=== PATIENT | female | born 1940 | race Caucasian/White ===

== ENCOUNTER 2019-02-13 02:05 | Emergency (ER) | payer MEDICARE, OTHER ==
[~2019-02-13] VITALS: Ht 162.6 cm; Wt 131.8 kg
[~2019-02-13 02:05] MED LIST: AMLODIPINE2.5 MG PO; ATIVAN1 MG PO; BLOOD GLUCOSE TEST S SC; CIPROFLOXACN500 MG PO; CLOTRIMAZOLE13 EX; DULCOLAX10 MG RE; FISH OIL1000 MG PO; FLEET ENEMA RE; FLUARIX QUADRIV1 INJ IM; FLUCONAZOLE150 MG PO; GABAPENTIN300 MG PO; GLIPIZIDE5 M2 PO; GLYBURIDE2.5 MG PO; GLYBURIDE5 MG PO; HUMALOG KW100 UNIT/M SC; HYDROCHLOROTH12.5 M1 PO; INSULIN SY0.3 MG/36 SC; INSULIN SY0.5 MG/35 SC; KETOCONAZOLE21 EX; LANCETS 30G30 G XX; LANTUS100 UNIT/M SC; LEVEMIR SC; LEVEMIR100 UNIT/M SC; LEVEMIR1000 UNITS SC; LEXAPRO10 MG PO; LISINOPRIL20 M1 PO; LISINOPRIL20 MG PO; MAPAP325 MG PO; METFORMIN1000 MG PO; METFORMIN500 M1 OR; METFORMIN500 MG PO; MILK OF MAG30 ML/UDC PO; MONITOR SC; MULTIVITAMI1 PO; NORVASC2.5 M1 PO; PRAVASTATIN10 MG OR; PRAVASTATIN10 MG PO; PRINIVIL5 MG OR; RELION ULTIMA B1 KIT XX; ROCEPHIN1 G1 IJ; ULTRAM50 M1 OR; VITAMIN B CO PO
[2019-02-13] MEDS ORDERED: JANUVIA50 MG PO (02:28)
[2019-02-13] MEDS ORDERED: FUROSEMIDE20 MG PO (02:28)
[2019-02-13] MEDS ORDERED: TRULICITY0.75 MG/0. SC (02:31)
[2019-02-13] MEDS ORDERED: FERROUS SULF325 M3 PO (02:35)
[2019-02-13] MEDS ORDERED: LEVEMIR100 UNIT/M SC (02:36)
[2019-02-13 02:58] LABS: HEMATOCRIT 33.6 % (37.0-47.0); HEMOGLOBIN 10.5 g/dl (12.0-16.0); IMMATURE GRANULOCYTES 0.9 % (0.0-5.0); MEAN CELL VOLUME 96.8 fL CALC (80.0-100.0); MEAN CORPUSCULAR HGB 30.3 pG CALC (26.0-32.0); MEAN CORPUSCULAR HGB CONC 31.3 g/L CALC (32.0-36.0); NEUT# 5.06 thou/uL (2.00-7.15); RED BLOOD COUNT 3.47 mill/uL (4.20-5.60); RED CELL DISTRI WIDTH 14.1 % (11.5-15.5)
[2019-02-13 03:11] LABS: ALKALINE PHOSPHATASE 86 u/l (38-126); BILIRUBIN, TOTAL 0.2 mg/dL (0.0-1.4); BUN 37 mg/dL (8-23); BUN/CREATININE RATIO 21 (12-20 (CALC)); CARBON DIOXIDE 26 mmol/l (22-30); CHLORIDE 107 mmol/l (95-108); CREATININE 1.7 mg/dL (0.5-1.0); GFR 29 ML/MIN (>=60 (CALC)); GFR FOR AFR.AMER. 35 ML/MIN (>=60 (CALC)); SGOT/AST 22 u/l (9-36); SODIUM 141 mmol/l (137-146); TOTAL PROTEIN 7.7 g/dL (6.3-8.2)
[2019-02-13 03:12] LABS: ALBUMIN 3.9 g/dL (3.2-5.0); ANION GAP 12 (6-22 (CALC)); POTASSIUM 3.9 mmol/l (3.5-5.1)
[2019-02-13 05:55] VITALS: BP 136/66
== END 2019-02-13 05:55 ==
LOC: ED 02:05
PROVIDERS: Family Medicine
DX: R07.89 Other chest pain (principal)

== ENCOUNTER 2020-02-12 02:49 | Inpatient (IN) | payer MEDICARE, OTHER ==
[~2020-02-12] VITALS: Ht 162.6 cm; Wt 119.0 kg
[~2020-02-12 02:49] MED LIST changes: +FERROUS SULF325 M3 PO; +FUROSEMIDE20 MG PO; +JANUVIA50 MG PO; +TRULICITY0.75 MG/0. SC
--- NOTE | 2020-02-12 03:10 | NUR ---
PATIENT ARRIVED TO ED ON O2@4L NC WITH PULSE OX READING 100%, O2 DISCONTINIED WITH PULSE OX READING 96% ON ROOM AIR. NO S/S OF DISTRESS NOTED, RESPIRATIONS EVEN AND UNLABORED.
[2020-02-12 03:30] LABS: HEMATOCRIT 35.6 % (37.0-47.0); HEMOGLOBIN 10.7 g/dl (12.0-16.0); IMMATURE GRANULOCYTES 1.4 % (0.0-5.0); MEAN CELL VOLUME 98.3 fL CALC (80.0-100.0); MEAN CORPUSCULAR HGB 29.6 pG CALC (26.0-32.0); MEAN CORPUSCULAR HGB CONC 30.1 g/dL CAL (32.0-36.0); NEUT# 3.28 thou/uL (2.00-7.15); RED BLOOD COUNT 3.62 mill/uL (4.20-5.60); RED CELL DISTRI WIDTH 13.8 % (11.5-15.5)
[2020-02-12 03:51] LABS: D-DIMER 1.25 mg/L (0.19-0.60)
[2020-02-12 03:52] LABS: URINE BILIRUBIN - DIPSTICK NEGATIVE (NEGATIVE); URINE BLOOD DIPSTICK LARGE (NEGATIVE); URINE COLOR YELLOW; URINE GLUCOSE - DIPSTICK NEGATIVE (NEGATIVE); URINE KETONE NEGATIVE (NEGATIVE); URINE PROTEIN - DIPSTICK 100 mg/dL (NEG-TRACE); URINE UROBILINOGEN - DIPSTICK 0.2 E.U./dL (0.2)
[2020-02-12 03:56] LABS: URINE LEUK ESTERASE MODERATE (NEGATIVE); URINE NITRITE - DIPSTICK POSITIVE (Negative)
--- NOTE | 2020-02-12 03:57 | NUR ---
PATIENT RESTING QUIETLY AT THIS TIME, NO C/O PAIN OR DISCOMFORT, NO S/S OF DISTRESS NOTED, RESPIRATIONS EVEN AND UNLABORED, AWAITING DIAGNOSTIC RESULTS.
[2020-02-12 04:04] LABS: URINE SQUAMOUS EPITHELIAL CELL FEW EPI/hpf (0-FEW); URINE WBC 50-100 WBC/hpf (0-5)
[2020-02-12 04:05] LABS: URINE BACTERIA MANY hpf
[2020-02-12 04:07] LABS: ALBUMIN 3.7 g/dL (3.2-5.0); CREATININE 1.6 mg/dL (0.5-1.0); TOTAL PROTEIN 7.2 g/dL (6.3-8.2)
[2020-02-12 04:08] LABS: PROTHROMBIN TIME 10.1 SECONDS (9.0-12.5)
[2020-02-12 04:18] LABS: BILIRUBIN, TOTAL 0.5 mg/dL (0.0-1.4); POTASSIUM 4.8 mmol/l (3.5-5.1)
--- NOTE | 2020-02-12 04:55 | NUR ---
PATIENT RESTING QUIETLY, RESPIRATIONS EVEN AND UNLABORED ON ROOM AIR, NO C/O PAIN OR DISCOMFORT, NO S/S OF DITRESS NOTED, AWAITING RADIOLGY EXAM IN AM.
--- NOTE | 2020-02-12 06:04 | NUR ---
PATIENT RESTING QUIETLY WITH EYES CLOSED, RESPIRATIONS EVEN AND UNLABORED, NO C/O PAIN OR DISCOMFORT, NO S/S OF DISTRESS, AWAITING DISCAHRGE TRANSPORTATION.
--- NOTE | 2020-02-12 06:05 | NUR ---
PATIENT UPDATE GIVEN TO DENYS AT [facility]
--- NOTE | 2020-02-12 06:06 | NUR ---
PATIENT AWAKE AND ALERT, NO C/O PAIN OR DISCOMFORT, AWAITING RADIOLOGY EXAM.
--- NOTE | 2020-02-12 07:00 | NUR ---
RECIEVED CARE OF PATIENT. PT RESTING ON STRETCHER, AWAKE, ALERT AND ORIENTED TO SELF. NO COMPLAINTS AT THIS TIME. SKIN PINK WARM AND DRY.
--- NOTE | 2020-02-12 08:00 | NUR ---
TO CT WITH PATIENT. PT UNCOOPERATIVE FOR EXAM. MEDICATED WITH ATIVAN AND O2 2L NC APPLIED. O2 SAT MONITOR IN PLACE. PT POSITIONED FOR TEST.
--- NOTE | 2020-02-12 08:30 | NUR ---
PT RETURNED TO CT. MONITORS APPLIED. PT PULLED OUT 22G IV IN LEFT HAND AND 20 G IV IN LEFT AC KINKED AND THEN DC'D. IV STARTED IN LEFT FOREARM. COBAN APPLIED TO COVER IV FOR SAFETY
--- NOTE | 2020-02-12 09:25 | NUR ---
PT RESTING ON STRETCHER IV ANTIBIOTICS INFUSING
--- NOTE | 2020-02-12 10:21 | NUR ---
PT RESTING ON STRETCHER AWAITING ADMISSION
--- NOTE | 2020-02-12 10:29 | NUR ---
MED SURG UNABLE TO TAKE REPORT AT THIS TIME
--- NOTE | 2020-02-12 11:00 | NUR ---
REPORT CALLED TO STEVEN MÉNDEZBANK ANALYST
--- NOTE | 2020-02-12 11:01 | NUR ---
RRECIEVED REPORT FROM ROSSANA RN
--- NOTE | 2020-02-12 11:12 | NUR ---
PT ARRIVED TO MED SURG ROOM 290 VIA STRETCHER IN STABLE CONDITION ACCOMPAINED BY ROSSANA. PT IS VERY DROWSY AT THIS TIME. ATIVAN 2 MG ADMINISTERED TO PT IN ER. RESPIRATIONS ARE SHALLOW, 2L NC APPLIED. LUNG SOUNDS ARE DIMINISHED. HEART RHYTHM IS NORMAL WITH TELE IN PLACE. BOWEL SOUNDS ARE HYPOACTIVE. RADIAL AND PEDAL PULSES ARE STRONG WITH NORMAL CAPILLARY REFILL. #20G IN LFA RUNNING WITH [employer], SITE APPEARS HEALTHY AND PATENT.NO SIGNS OF ANY PAIN OR DISCOMFORTS AT THIS TIME. ALL [employer] PRCAUTIONS IN PLACE WITH CALL LIGHT IN REACH. NO BELONGINGS PRESENT WITH PT. [employer] WAS INFORMED BY ROSSANA THAT IF "PT HAD BELONGINGS, THEY WOULD BE BROUGHT BACK UP ". WILL CONTINUE TO MONITOR
--- NOTE | 2020-02-12 11:15 | NUR ---
PT TRANSPORTED TO MED SURG VIA STRETCHER, TELEMETRY IN PLACE
[2020-02-12 11:55] VITALS: BP 180/82
--- NOTE | 2020-02-12 11:58 | NUR ---
FLU SWAB OBTAINED AT THIS TIME. PT STILL APPEARS DROWSY. RESPIRATIONS SHALLOW, 2L NC APPLIED. ALL SAFETY PRECAUTIONS ARE IN PLACE WITH CALL LIGHT IN REACH. WILL CONTINUE TO MONITOR
--- NOTE | 2020-02-12 13:03 | NUR ---
SPOKE WITH SON OF PT STATUS. PT APPROVED TO GIVE SON INFORMATION. SON IS GOO HISTORIAN.
[2020-02-12 13:18] VITALS: BP 145/65
--- NOTE | 2020-02-12 13:18 | NUR ---
REASSESSMENT OF BP RESULTING IN 145/65 HR 69. PT STILL APPEARS DROWSY. RESPIRTAIONS ARE SHALLOW, 2L NC APPLIED. ASSESSMENT REAMINS THE SAME. PT UNABLE TO ANSWER ADMISSION QUESTIONS DUE TO BEING MEDICATED. SON WAS ABLE TO ANSWER SOME QUESTIONS. [facility] TO BE CONTACTED FOR FURTHER INFORMATION. ALL SAFTEY PRECAUTIONS IN PLACE WITH CALL LIGHT IN REACH. WILL CONTINUE TO MONITOR
--- NOTE | 2020-02-12 14:07 | NUR ---
[facility] CONTACTED TO ASSIST WITH COMPLETION OF ADMISSION QUESTIONS.
[2020-02-12 15:33] VITALS: BP 145/65
--- NOTE | 2020-02-12 16:40 | NUR ---
PT RESTING IN SEMI FOWERS POSITION WITH EYES CLOSED. REPSIRATIONS ARE EVEN AND UNLABORED WITH NO SIGNS OF DISTRESS NOTED. PT MEDICATED IN ER WITH ATIVAN. PT STILL PRESENTS DROWSY. IVF RUNNING PER ORDER. NO SIGNS OF ANY PAIN OR DISCOMFORTS.ASSESSMENT REMAINS THE SAME AT THIS TIME. ALL SFAETY PRECAUTIONS ARE IN PLACE WITH CALL LIGHT IN REACH. WILL CONTINUE TO MONITOR
--- NOTE | 2020-02-12 19:02 | NUR ---
REPORT FROM IRISH JARVIS. PT NOTED RESTING IN BED. RESPIRATIONS EVEN AND UNLABORED. O2 @ 2L/M VIA NC. PT REMAINS VERY DROWSY, BUT WAKES TO VERBAL STIMULI AND ANSWERS QUESTIONS APPROPRIATELY. PT DENIES ANY PAIN OR SOB. IV FLUIDS INFUSING ORDERED. IV SITE APPEARS HEALTHY. DISCUSSED POC. PT VERBALIZED UNDERSTANDING. CALL LIGHT WITHIN REACH. WILL CONTINUE TO MONITOR.
--- NOTE | 2020-02-12 19:17 | NUR ---
[facility] CONTACTED REGARDING PT CODE STATUS. COPY OF DNR RECEIVED VIA FAX AT THIS TIME, INTERNAL CONTROLS ANALYST PHYSICIAN NOTIFIED.
[2020-02-12 20:05] VITALS: BP 157/75
--- NOTE | 2020-02-12 21:50 | NUR ---
PT MEDICATED ORDERED. STEP FINISHER ABLE TO AROUSE PT ENOUGH TO EAT DIABETIC SNACK AT THIS TIME. PT DINNER LEFT IN ROOM NOTED TO BE UNTOUCHED. PT DENIES ANY CURRENT WANTS OR NEEDS. CALL LIGHT WITHIN REACH. WILL CONTINUE TO MONITOR.
[2020-02-13] VITALS: BP 120/50
--- NOTE | 2020-02-13 00:07 | NUR ---
PT INCONTINENT OF BOWEL AND BLADDER AT THIS TIME. PERICARE PROVIDED AND CLEAN BRIEF APPLIED. PT REPOSITIONED FOR COMFORT. HEALS OFFLOADED. PT DENIES ANY PAIN OR SOB AT THIS TIME. 02 SAT 96% ON 2L/M VIA NC. [employer] LICENSEE REMAINS IN PLACE. IVF INFUSING WITHOUT DIFFICULTY. PT STAYED AWAKE WHILE STAFF IN ROOM PROVIDING CARE. CALL LIGHT WITHIN REACH. WILL CONTINUE TO MONITOR.
[2020-02-13 04:00] VITALS: BP 129/57
--- NOTE | 2020-02-13 04:16 | NUR ---
PT REPOSITIONED AND CHANGED OF INCONTINENCE A THIS TIME. PERICARE PROVIDED. PT TOLERATED WELL. PT DENIES ANY PAIN OR SOB. PT AWAKE AND MORE ALERT NOW. CALL LIGHT WITHIN REACH. WILL CONTINUE TO MONITOR.
[2020-02-13 05:11] LABS: HEMATOCRIT 34.7 % (37.0-47.0); HEMOGLOBIN 10.2 g/dl (12.0-16.0); IMMATURE GRANULOCYTES 1.5 % (0.0-5.0); MEAN CELL VOLUME 99.1 fL CALC (80.0-100.0); MEAN CORPUSCULAR HGB 29.1 pG CALC (26.0-32.0); MEAN CORPUSCULAR HGB CONC 29.4 g/dL CAL (32.0-36.0); NEUT# 2.38 thou/uL (2.00-7.15); RED BLOOD COUNT 3.5 mill/uL (4.20-5.60); RED CELL DISTRI WIDTH 13.6 % (11.5-15.5)
[2020-02-13 05:39] LABS: ALBUMIN 3.1 g/dL (3.2-5.0); C-REACTIVE PROTEIN 1.2 mg/dL (0-0.9); CREATININE 1.5 mg/dL (0.5-1.0); POTASSIUM 4.4 mmol/l (3.5-5.1); TOTAL PROTEIN 6.1 g/dL (6.3-8.2)
[2020-02-13 05:40] LABS: BILIRUBIN, TOTAL 0.1 mg/dL (0.0-1.4); MAGNESIUM 2.1 mg/dL (1.6-2.3)
--- NOTE | 2020-02-13 07:10 | NUR ---
REPORT RECEIVED BY MATHEUS GUPTA
--- NOTE | 2020-02-13 08:10 | NUR ---
PT RESTING IN SEMI FOWLERS POSITIONK,A&O X2 WITH FORGETFULNESS NOTED.HX DEMENTIA, WILL ATTEMPT TO RE-ORIENT NEEDED;PT DENIES ANY CURRENT PAIN OR DISCOMFORTS,PAIN SCALE AND REPORTING EDUCATED;RESPIRATIONS EVEN AND UNLABORED ON RA WITH STABLE OXYGEN SATS, O2 @ 2L AT BEDSIDE NEEDED;NON-PRODUCTIVE COUGH AT TIMES;ABDOMEN SOFT ON PALPATION AND ACTIVE IN ALL 4 QUADRANTS;STRONG PEDAL PULSES;SKIN INTACT;TELE MONITORING IN PLACE;#20G TO LFA INFUSING NS @ 50ML/HR,SITE APPEARS HEALTHY;ACCUCHECK 179, PT COVERED WITH SLIDING SCALE NOVOLOG PER ORDER;PT REMAINS IN AIR/CONTACT PRECAUTIONS DUE TO COVID19 DX;PT DENIES ANY ADDITIONAL NEEDS AT THIS TIME;ENCOURAGED TO CALL FOR ASSISTANCE IF NEEDED;FALL PRECAUTIONS IN PLACE WITH BED IN THE LOWEST POSIITON AND CALL LIGHT IN REACH;WILL CONTINUE TO MONITOR
[2020-02-13 08:12] VITALS: BP 149/57
--- NOTE | 2020-02-13 08:48 | NUR ---
AT BEDSIDE DISCUSSING POC WITH PT.
[2020-02-13 11:25] VITALS: BP 132/55
--- NOTE | 2020-02-13 11:35 | NUR ---
PT RESTING IN SEMI FOWLERS POSITION;RESPIRATIONS EVEN AND UNLABORED ON O2 @ 2L VIA NC;PT DENIES ANY CURRENT PAIN OR DISCOMFORTS;TELE MONITORING IN PLACE;IV SITE PATENT;ACCUCHECK 226, PT COVERED WITH SLIDING SCALE NOVOLOG PER ORDER;PT DENIES ANY ADDITIONAL NEEDS AT THIS TIME;ENCOURAGED TO CALL FOR ASSISTANCE IF NEEDED;CALL LIGHT IN REACH;WILL CONTINUE TO MONITOR
[2020-02-13 15:25] VITALS: BP 146/58
--- NOTE | 2020-02-13 16:30 | NUR ---
PT RESTING IN SEMI FOWLERS POSITION;RESPIRATIONS EVEN AND UNLABORED ON RA;PT DENIES ANY CURRENT PAIN OR NEEDS;TELE MONITORING IN PLACE;IV SITE PATENT AND ABX HUNG AT THIS TIME;ASSESSMENT REMAINS UNCHANGED;PT ENCOURAGED TO CALL FOR ASSISTANNCE IF NEEDED;CALL LIGHT IN REACH;WILL CONTINUE TO MONITOR
[2020-02-13 19:51] VITALS: BP 162/57
--- NOTE | 2020-02-13 19:51 | NUR ---
PT RESTING IN BED ALERT TO SELF. RESPIRATIONS EVEN AND UNLABORED ON RA. LUNGS SOUND DIMINISHED. PEDAL PULSES ARE STRONG. PT DENIES ANY PAIN OR DISCOMFORT AT THIS TIME. SAFETY PRECAUTIONS IN PLACE. WILL CONTINUE TO MONITOR.
[2020-02-14] VITALS (10 sets, daily range): BP systolic 150–201; BP diastolic 63–162
--- NOTE | 2020-02-14 00:30 | NUR ---
PT RESTING IN BED, RESPIRATIONS EVEN AND UNLABORED ON RA. PT REMOVED IV, IV CATHETER INTACT. NEW IV TO BE STARTED.
--- NOTE | 2020-02-14 03:06 | NUR ---
PT RESTING IN BED, RESPIRATIONS EVEN AND UNLABORE ON RA. NO S/S OF DISTRESS AT THIS TIME. SAFETY PRECAUTIONS IN PLACE. WILL CONTINUE TO MONITOR.
--- NOTE | 2020-02-14 03:57 | NUR ---
RAKEL RN AT BEDSIDE TO START IV
--- NOTE | 2020-02-14 07:40 | NUR ---
PT RESTING IN SEMI FOWLERS POSITION, A&O X1;WILL ATTEMPT TO RE-ORIENT NEEDED;VS OBTAINED AND ASSESSMENT COMPLETED, CURRENT BP 189/104 HR 85 (BEATRICE ANRP NOTIFIED);PT DENIES ANY CURRENT PAIN OR DISCOMFORTS,PAIN SCALE AND REPORTING EDUCATED;RESPIRATIONS SHALLOW ON O2 @ 2L VIA NC,NON-PRODUCTIVE COUGH NOTED AT TIMES;ABDOMEN SOFT ON PALPATION AND ACTIVE IN ALL 4 QUADRANTS;STRONG PEDAL PULSES;REDDENING NOTED TO COCCYX AND ABD FOLDS,SKIN OTHERWISE INTACT;#22G TO RH FLUSHED AND PATENT,SITE APPEARS HEALTHY;TELE MONITORING IN PLACE;ACCUCHECK 113, NO COVERAGE NEEDED;PT REMAINS IN AIR/CONTACT PRECAUTIONS;ALL SAFETY PRECAUTIONS REMAIN IN PLACE WITH BED IN THE LOWEST POSITION AND CALL LIGHT IN REACH;WILL CONTINUE T0 MONITOR
--- NOTE | 2020-02-14 08:15 | NUR ---
AT BEDSIDE DISCUSSING POC.
--- NOTE | 2020-02-14 09:00 | NUR ---
BP RE-CHECK 196/74 HR 92, PT TO BE MEDICATED WITH PRN APRESOLINE 10MG IVP BY HONEY WEBB;WILL CONTINUE TO MONITOR
--- NOTE | 2020-02-14 09:10 | NUR ---
REPORT RECEIVED FROM HONEY PICKARD.
--- NOTE | 2020-02-14 10:15 | NUR ---
PT CURRENT TEMP 100.5, ATTEMPT TO MEDICATE PT WITH PRN TYLENOL BUT PT REFUSING TO TAKE PO MEDICATION AT THIS TIME;BEATRICE ANRP NOTIFIED;WILL CONTINUE TO MONITOR
--- NOTE | 2020-02-14 12:00 | NUR ---
PT RESTING IN SEMI FOWLERS POSITION;RESPIRATIONS EVEN AND UNLABORED ON O2 @ 2L VIA NC;PT NOT VERY TALKATIVE, NO S/S OF DISTRESS NOTED;TELE MONITORING IN PLACE;IV SITE PATENT;CURRENT BP 165/70 TEMP 100.0;ACCUCHECK 169, PT COVERED WITH SLIDING SCALE NOVOLOG PER ORDER;ALL SAFETY PRECAUTIONS REINFORCED AND LUNCH TRAY PROVIDED;ENCOURAGED TO CALL FOR ASSISTANCE IF NEEDED;CALL LIGHT IN REACH;WILL CONTINUE TO MONTIOR
--- NOTE | 2020-02-14 15:40 | NUR ---
PT RESTING IN SEMI FOWLERS POSITION;RESPIRATIONS EVEN AND UNLABORED ON O2 @ 2L VIA NC;PT DENIES ANY CURRENT PAIN OR DISCOMFORTS;TELE MONITORING IN PLACE;IV SITE PATENT;ASSESSMENT REMAINS UNCHANGED AT THIS TIME AND IS ENCOURAGED TO CALL FOR ASSISTANCE IF NEEDED;FALL PRECAUTIONS IN PLACE WITH CALL LIGHT IN REACH;WILL CONTINUE TO MONITOR
--- NOTE | 2020-02-14 20:02 | NUR ---
NURSING REPORT RECEIVED FROM [facility]. PT ASSESSMENT AND VITALS COMPLETE. PT RESTING IN SEMI FOWLERS POSITION;RESPIRATIONS EVEN AND UNLABORED ON O2 @ 2L VIA NC;PT IS NON VERBAL, PTS CURRENT BP 192/84 WAS COVERED WITH 10 MG OF LABETALOL. WILL REASSES BP. NO S/S OF DISTRESS NOTED;TELE MONITORING IN PLACE;IV SITE PATENT;ACCUCHECK 93, NO COVERAGE NEEDED WITH SLIDING SCALE NOVOLOG PER ORDER;ALL SAFETY PRECAUTIONS REINFORCED; ENCOURAGED TO CALL FOR ASSISTANCE IF NEEDED;CALL LIGHT IN REACH;WILL CONTINUE TO MONTIOR.
--- NOTE | 2020-02-14 23:30 | NUR ---
PT BP REMAINS HIGH. 10 MG IV PRN APRESOLINE GIVEN . WILL REASSESS. PTS BED CHANGED. PT RESTING IN SEMI FOWLERS POSITION;RESPIRATIONS EVEN AND UNLABORED ON O2 @ 2L VIA NC;PT DENIES ANY CURRENT PAIN OR DISCOMFORTS;TELE MONITORING IN PLACE;IV SITE PATENT; CALL FOR ASSISTANCE IF NEEDED;FALL PRECAUTIONS IN PLACE WITH CALL LIGHT IN REACH;WILL CONTINUE TO MONITOR
--- NOTE | 2020-02-14 23:45 | NUR ---
PT B/P REASSESSED @206/114, APRESOLINE IV ADMINISTERED AT THIS TIME. PT PROVIDED COMPLETE BEDBATH AT THIS TIME. NO S/O DISTRESS NOTED. PT REPOSITIONED IN BED FOR PRESSURE CARE, PILLOW TO RIGHT SIDE.
[2020-02-15] VITALS (12 sets, daily range): BP systolic 132–206; BP diastolic 52–114
--- NOTE | 2020-02-15 04:56 | NUR ---
PT CONTINUES BEFORE. NO EVIDENCE OF DISTRESS. PT REPOSITIONED TO THE MIDDLE OF THE BED SEMI FOWLERS. CALL LIGHT WITHIN REACH . WILL CONTINUE TO MONITOR.
--- NOTE | 2020-02-15 07:10 | NUR ---
REPORT RECEIVED FROM HONEY SANTANA.
--- NOTE | 2020-02-15 07:50 | NUR ---
PT RESTING IN SEMI FOWLERS POSITION,NON-VERBAL THIS MORNING;VS OBTAINED AND ASSESSMENT COMPLETED;PT DENIES ANY CURRENT PAIN OR DISCOMFORTS,PAIN SCALE AND REPORTING EDUCATED;RESPIRATIONS SHALLOW ON O2 @ 2L VIA NC;ABDOMEN SOFT ON PALPATION AND ACTIVE IN ALL 4 QUADRANTS;STRONG PEDAL PULSES;REDDENING NOTED TO ABD FOLD AND COCCYX,SKIN OTHERWISE INTACT;TELE MONITORING IN PLACE;#22G TO RIGHT HAND FLUSHED AND PATENT,SITE APPEARS HEALTHY;PT CURRENT BP 175/70 HR 78, PT REFUSES TO TAKE ANY ORAL MEDICATION THIS MORNING THEREFORE PRN APRESOLINE 10MG IVP TO BE ADMINISTERED BY HONEY WEBB;PT REMAINS IN AIR/CONTACT PRECAUTIONS DUE TO COVID 19 DX;ALL SAFETY PRECAUTIONS REINFORCED WITH BED IN THE LOWEST POSITION AND CALL LIGHT IN REACH;WILL CONTINUE TO MONITOR
--- NOTE | 2020-02-15 08:05 | NUR ---
10 MG IV APRESOLINE GIVEN FOR BP 175/70 AND HR 78. ROCHELLE NAVARRETEN TO REASSESS
--- NOTE | 2020-02-15 09:05 | NUR ---
BP RE-CHECK 172/75 HR 95 AFTER PRN APRESOLINE ADMINISTRATION;BEATRICE ANXENA NOTIFIED,AWAITING NEW ORDERS;WILL CONTINUE TO MONITOR
--- NOTE | 2020-02-15 09:29 | NUR ---
AT BEDSIDE DISCUSSING POC.
--- NOTE | 2020-02-15 10:00 | NUR ---
PT TO BE MEDICATED WITH PRN LABETOLOL 10MG IVP FOR BP 172/73 HR 95 BY HONEY WEBB.
--- NOTE | 2020-02-15 10:04 | NUR ---
10 MG OF IV LABETOLOL GIVEN FOR BP 172/73 AND HR 95, PER NATALI PETTIT OKAY TO GIVEN DUE TO BP NOT MEETING EMAR BP PERAMEBELL. ROCHELLE NAVARRETEN TO REASSESS
--- NOTE | 2020-02-15 11:05 | NUR ---
BP RE-CHECK 132/52 HR 71
--- NOTE | 2020-02-15 11:45 | NUR ---
PT RESTING IN SEMI FOWLERS POSITION,DROWSY BUT SAYS "WHAT" WHEN SPOKEN TO;RESPIRATIONS REMAIN SHALLOW ON O2 @ 2L VIA NC;PT DENIES ANY CURRENT PAIN OR DISCOMFORTS;TELE MONITORING IN PLACE;IV SITE PATENT;ACCUCHECK 167, PT COVERED WITH SLIDING SCALE NOVOLOG PER ORDER;ASSESSMENT REMAINS UNCHANGED AT THIS TIME AND IS ENCOURAGED TO CALL FOR ASSISTANCE IF NEEDED;FALL PRECAUTIONS IN PLACE WITH CALL LIGHT IN REACH;WILL CONTINUE TO MONITOR
--- NOTE | 2020-02-15 15:35 | NUR ---
PT SLEEPING IN SEMI FOWLERS POSITION;RESPIRATIONS EVEN AND UNLABORED,SHALLOW ON O2 @ 2L VIA NC;NO S/S OF DISTRESS NOTED;TELE MONITORING IN PLACE;#22G RIGHT HAND PATENT;BP 175/69 HR 74, PT TO BE MEDICATED WITH PRN LABETOLOL 10MG IVP BY HONEY WEBB;ALL SAFETY PRECAUTIONS REMAIN IN PLACE WITH BED IN THE LOWEST POSITION AND CALL LIGHT IN REACH;WILL CONTINUE TO MONITOR
--- NOTE | 2020-02-15 20:23 | NUR ---
ED CALLED TO REPORT PT HAD 7BEAT RUN OF V-TACH. NO S/O DISTRESS AT THIS TIME. V/S ASSESSED.
--- NOTE | 2020-02-15 22:20 | NUR ---
V/S ASSESSED 187/73 BP, HR 87, I CALLED ED FOR TELEMETRY READING CONFIRMATION "[id number]" WILL MEDICATE PT FOR BP
--- NOTE | 2020-02-15 22:29 | NUR ---
REPORT RECIEVED FROM EDMOND ALVAREZ. PT ASSESSMENT AND VITALS COMPLETED. RESTING IN SEMI FOWLERS POSITION,NON-VERBAL THIS MORNING; RESPIRATIONS SHALLOW ON O2 @ 2L VIA NC;ABDOMEN SOFT ON PALPATION AND ACTIVE IN ALL 4 QUADRANTS;STRONG PEDAL PULSES;REDDENING NOTED TO ABD FOLD AND COCCYX,SKIN OTHERWISE INTACT;TELE MONITORING IN PLACE;#22G TO RIGHT HAND FLUSHED AND PATENT,SITE APPEARS HEALTHY;PT CURRENT BP REMAINS HIGH, WILL TREAT WITH PRN MEDICATION. ALL SAFETY PRECAUTIONS REINFORCED WITH BED IN THE LOWEST POSITION AND CALL LIGHT IN REACH; WILL CONTINUE TO MONITOR
--- NOTE | 2020-02-15 22:30 | NUR ---
MEDICATED W/LEBATALOL FOR ELEVATED BP OF 187/73. HR ON TELEMETRY SR 84. 93% ON 2LNC. PT FACE APPEARS FLUSHED PRIOR TO ADMINISTERING MEDICATION. WILL CONTINUE TO MONITOR FOR RESPONSE.
--- NOTE | 2020-02-15 23:24 | NUR ---
PT MEDICATED W/TYLENOL FOR TEMP 100.9 BLANKETS REMOVED AT THIS TIME. ROOM IS COOL WE CAN GET. PT WAS ABLE TO SWALLOW PILLS CRUSED AND ADDED TO APPLESAUCE WITH MUCH ENCOURAGEMENT AND GUIDANCE. PT'S EYES REMAINED CLOSED, BUT SHE REPSONDED IN EATING 3/4 APPLESAUCE. PT WOULD NOT RESPOND TO DRINK. WILL ATTEMPT THICKENED WATER ON FOLLOW-UP. PROVIDED ORAL CARE AFTER FEED. PT TOLERATED WELL.
--- NOTE | 2020-02-15 23:34 | NUR ---
WATER THICKENED AND PT WAS ABLE TO INTAKE WITH A SPOON VERY WELL.
--- NOTE | 2020-02-16 00:11 | NUR ---
RE-ASSESSED TEMPERATURE 98.1 F
--- NOTE | 2020-02-16 02:10 | NUR ---
PT SLEEPING SOUNDLY, NO S/O DISTRESS NOTED. FAN ON PT FOR COMFORT, PREVIOUS RECHECK OF TEMP WAS AFEBRILE. NO S/O DISTRESS NOTED, PT APPEARS RESTFUL.
[2020-02-16 04:36] LABS: HEMOGLOBIN 10.9 g/dl (12.0-16.0); IMMATURE GRANULOCYTES 1.7 % (0.0-5.0); MEAN CELL VOLUME 98.1 fL CALC (80.0-100.0); MEAN CORPUSCULAR HGB 28.9 pG CALC (26.0-32.0); MEAN CORPUSCULAR HGB CONC 29.5 g/dL CAL (32.0-36.0); NEUT# 3.62 thou/uL (2.00-7.15); RED BLOOD COUNT 3.77 mill/uL (4.20-5.60); RED CELL DISTRI WIDTH 14.4 % (11.5-15.5)
[2020-02-16 04:50] VITALS: BP 132/57
--- NOTE | 2020-02-16 04:55 | NUR ---
pt cleaned of incontinent urine, provided sabrina-care and repositioned, pillows to r.side and feet elevated to float. hob @45 degrees and pt assisted drinking thickened water w/spoon. pt tolerated this well and intake 240cc of thicked water po at this time.
[2020-02-16 04:58] LABS: ALBUMIN 3.2 g/dL (3.2-5.0); C-REACTIVE PROTEIN 6.9 mg/dL (0-0.9); CREATININE 1.7 mg/dL (0.5-1.0); POTASSIUM 3.7 mmol/l (3.5-5.1); TOTAL PROTEIN 6.2 g/dL (6.3-8.2)
[2020-02-16 04:59] LABS: BILIRUBIN, TOTAL 0.3 mg/dL (0.0-1.4)
[2020-02-16 09:07] VITALS: BP 178/86
--- NOTE | 2020-02-16 09:59 | NUR ---
RECVIEVED REPORT FROM HONEY SANTANA. PT RESTING IN SEMI FOWLERS POSITION WHEN ENTERING ROOM. INTRODUCED SELF TO PT AND DISCUSSED POC. PT APPEARS TO BE AWAKE BUT NON VERBAL. ASSESSMENT AND VITALS COMPLETED AT THIS TIME. RESPIRATIONS ARE SHALLOW. LUNG SOUNDS ARE DIMINISHED. ORDERS FROM DERECK BARRON TO REMOVED O2 TO SEE HOW PT TOLERATES. PT STAT DROPPED TO 89% ON ROOM AIR. 2L NC REAPPLIED, PT SATING 97%. HEART RHYTHM IS NORMAL WITH TELE IN PLACE. BOWEL SOUNDS ARE HYPOACTIVE. RADIAL AND PEDAL PULSES ARE STRONG WITH NORMAL CAPILLARY REFILL. #20 IN RIGHT HAND FLUSHED, SITE APPEARS HEALTHY AND PATENT.MORNING MEDS GIVEN WITH APPLE SAUCE. PT TOLERATED WELL. BUTTOCK IS REDDENED WITH NO BREAKDOWN, Q2 TURING ENFORCED. NO SIGNS OF ANY PAIN OR DISCOMFORTS AT THIS TIME. ALL SAFETY AND ISOLATION PRECAUTIONS ARE IN PLACE. WILL CONTINUE TO MONITOR
[2020-02-16 11:00] VITALS: BP 153/64
--- NOTE | 2020-02-16 12:28 | NUR ---
NEW #20G STARTED IN RAC BY HONEY WHITE. SITE APPEARS HEALTHY AND PATENT. PT REMAINS NON VERBAL. RESPIRATIONS ARE EVEN AND UNLABROED WITH NO SIGNS OF DISTRESS NOTED. NO SIGNS OF ANY PAIN OR NEEDS. ALL SAFETY PRECAUTIONS ARE IN REACH. WILL CONTINUE TO MONITOR
--- NOTE | 2020-02-16 16:00 | NUR ---
PT RESTING IN SEMI FOWLERS POSITION WATCHING TV. RESPIRATIONS ARE EVEN AND UNLABORED WITH NO SIGNS OF DISTRESS. PT WAS RESPONDING TO YES OR NO QUESTIONS. PT DENEIS ANY PAIN OR DISCOMFORTS.ALL SAFTEY PRECAUTIONS ARE IN PLACE WITH CALL LIGHT IN REACH. WILL CONTINUE TO MONITOR
[2020-02-16 16:40] VITALS: BP 141/66
--- NOTE | 2020-02-16 18:55 | NUR ---
REPORT RECEIVED FROM MATHEUS HARRIS. PT RESTING IN BED FREE FROM DISTRESS AT THIS TIME. SAFETY PRECAUTIONS IN PLACE WILL CONTINUE TO MONITOR.
[2020-02-16 19:00] VITALS: BP 131/54
--- NOTE | 2020-02-16 19:51 | NUR ---
REASSESSMENT OF BP RESULTING IN 153/64, HR 77. RESPIRATIONS ARE EVEN AND UNLABORED WITH NO SIGNS OF DISTRESS. ALL SAFETY PRECAUTIONS IN REACH WITH CALL LIGHT IN REACH. WILL CONTINUE TO MONITOR
--- NOTE | 2020-02-16 21:30 | NUR ---
PT RESTING IN BED ALERT TO SELF. RESPIRATION EVEN AND UNLABORED ON RA, PT REMOVED O2, O2 PLACED BACK ON PT AND PROVIDED PT EDUCATION ON THE NEED FOR O2. LUNGS SOUND DIMINISHED. PEDAL PULSES ARE WEAK. PT DENIES ANY PAIN OR DISCOMFORT AT THIS TIME. SAFETY PRECAUTIONS IN PLACE. WILL CONTINUE TO MONITOR.
--- NOTE | 2020-02-17 00:15 | NUR ---
PT RESTING IN BED, WITH EYES CLOSED. RESPIRATIONS EVEN AND UNLABORED ON O2 @ 2L VIA NC. NO S/S OF DISTRESS AT THIS TIME. WILL CONTINUE TO MONITOR.
[2020-02-17 00:26] VITALS: BP 158/61
[2020-02-17 03:50] VITALS: BP 142/61
--- NOTE | 2020-02-17 04:21 | NUR ---
PT RESTING IN BED, WITH EYES CLOSED, FREE FROM DISTRESS. WILL CONTINUE TO MONITOR.
[2020-02-17 07:44] VITALS: BP 180/71
--- NOTE | 2020-02-17 07:44 | NUR ---
RECEIEVED REPORT FROM HONEY VALENZUELA. PT RESTING IN SEMI FOWLERS POSITION EATING BREASKFAST UPON ENTERING ROOM. INTRODUCED SELF TO PT AND DISCUSSED POC. PT IS A/O TO PERSON ONLY. ASESSMENT AND VITALS COMPLETED. BP 180/71, HR 71. MORNING MEDS TO BE ADMINISTERED.RESPIRATIONS ARE SHALLOW, OXYGEN OFF UPON ENTERING ROOM. 2L NC REAAPLIED. HEART RHYTHM IS NORMAL WITH TELE IN PLACE. RADAIAL PULSES ARE STRONG. PEDAL PULES WEAK WITH NORMAL CAPILLARY REFILL. #20 IN RAC FLUSHED, SITE APPEARS HEALTHY AND PATENT. PT PRESENTS WITH REDDENED BUTTOCKS WITH NO BREAKDOWN. Q2 TURNING ENFORCED. PURE WHICK IN PLACE WITH SUCTION. NO SIGNS OF ANY PAIN OR DISCOMFORTS. ALL SAFETY PRECAUTIONS ARE IN PLACE WITH CALL LIGHT IN REACH. WILL CONTINUE TO MONITOR.
[2020-02-17] MEDS ORDERED: DEXAMETHASON6 MG PO (11:17)
[2020-02-17] MEDS ORDERED: BACTRIM DS1 TAB PO (11:17)
[2020-02-17 11:48] VITALS: BP 146/70
--- NOTE | 2020-02-17 11:48 | NUR ---
REASSESSMENT OF BP RESULTING IN 146/70, HR 73. RESPIRATIONS ARE SHALLOW, [address] NO SIGNS OF ANY PAIN OR DISCOMFORTS NOTED. ALL SAFTEY PRECAUTIONS ARE IN PLACE WITH CALL LIGHT IN REACH. WILL CONTINUE TO MONITOR
--- NOTE | 2020-02-17 12:36 | NUR ---
DC ORDERS IN AWAITING FOR CASE MANAGEMENT TO ARRIVE TO ASSIST WITH DISCHARGE BACK TO [facility]. SPOKE WITH FANI FROM . WRITTER WAS INFORMED THAT CM WOULD ARRIVE IN ABOUT AN HOUR.
--- NOTE | 2020-02-17 12:43 | NUR ---
PT SLEEPING IN HIGH FOWLERS POSITION WHEN ENTERING ROOM. RESPIRATIONS ARE EVEN AND UNLABORED WITH NO SIGNS OF DISTRESS. IV ANTIBIOTICS COMPLETED, IV FLUSHED. NO SIGNS OF ANY PAIN OR DISCOMFORTS AT THIS TIME. ALL SAEFTY PRECAUTIONS ARE IN PLACE WITH CALL LIGHT IN REACH.WILL CONTINUE TO MONITOR
[2020-02-17 15:00] VITALS: BP 138/59
--- NOTE | 2020-02-17 16:00 | NUR ---
PT SLEEPING IN SEMI FOWLERS POSITION. RESPIRATIONS ARE EVEN AND UNLABORED WIT NO SIGNS OF DISTRESS. NO SIGNS OF ANY PAIN. LORENE SFAETY PRECAUTIONS ARE IN PLACE WITH CALL LIGHT IN REACH. WILL CONTINUE TO MONITOR
--- NOTE | 2020-02-17 18:34 | NUR ---
NOTIFIED BY CM THAT PT WAS NOT GOING TO BE DISCHARGED BACK TO [facility] UNTIL WEDNESDAY DUE TO NOT HAVING AVAILALE ROOM. NETWORK OPERATIONS TECHNICIAN NOTIFIED.
[2020-02-17 19:00] VITALS: BP 163/87
--- NOTE | 2020-02-17 19:05 | NUR ---
REPORT RECEIVED FROM MATHEUS HARRIS. PT RESTING IN BED FREE FROM DISTRESS AT THIS TIME. SAFETY PRECAUTIONS IN PLACE. WILL CONTINUE TO MONITOR.
--- NOTE | 2020-02-17 21:30 | NUR ---
PT RESTING IN BED ALERT TO SELF. RESPIRATION EVEN AND UNLABORED ON RA, PT REMOVED O2, O2 PLACED BACK ON PT AND PROVIDED PT EDUCATION ON THE NEED FOR O LUNGS SOUND DIMINISHED. PEDAL PULSES ARE WEAK. PT DENIES ANY PAIN OR DISCOMFORT AT THIS TIME. PT STATES "I JUST WANT TO GO TO BED", LIGHTS TURNED DOWN PER PT REQUEST. SAFETY PRECAUTIONS IN PLACE. WILL CONTINUE TO MONITOR.
[2020-02-18] VITALS (8 sets, daily range): BP systolic 139–177; BP diastolic 58–88
--- NOTE | 2020-02-18 00:15 | NUR ---
PT RESTING IN BED, RESPIRATIONS EVEN AND UNLABORED ON RA PT REMOVED O2, O2 SAT 96%. TELE IN PLACE. CALL VILLAGRAN WITHIN REACH. WILL CONTINUE TO MONITOR.
--- NOTE | 2020-02-18 04:40 | NUR ---
PT RESTING IN BED, FREE FROM DISTRESS AT THIS TIME. CALL VILLAGRAN WITHIN REACH. WILL CONTINUE TO MONITOR.
--- NOTE | 2020-02-18 07:55 | NUR ---
RECIEVED REPORT FROM Elicia GARCIA RN PT RESTING IN SEMI FOWLERS POSITION UPON ENTERING ROOM.INTRODUCED SELF TO PT ADN DISCUSSED POC. PT IS A/O TO SELF ONLY.ASSESSMENT AND VITALS COMPLETED. RESPRIATIONS ARE EVEN AND UNLABORED WITH NO SIGNS OF DISTRESS NOTED. LUNG SOUNDS ARE DIMINISED, PT RECIEVING 2L NC. HEART RHYTHM IS NORMAL WITH TELE IN PLACE. RADIAL PULSES ARE STRONG. PEDAL PULSES ARE WEAK. #20G IN RAC FLUSHED, SITE APPEARS HEALTHY AND PATENT. PURE WHICK IN PLACE WITH SUCTION. PT PRESENTS WITH SLIGHT REDDENED BUTTOCKS, Q2 TURNS ENFORCED. PT DENIES OF ANY PAIN OR DISCOMFORTS. ALL SAFETY AND ISOLATION PRECAUTIONS ARE IN PLACE WITH CALL LIGHT IN REACH. WILL CONTINUE TO MONITOR.
--- NOTE | 2020-02-18 11:31 | NUR ---
REASSESSMENT OF BP RESULTING IN 174/72, HR 80. RESPIRATIONS ARE EVEN AND UNLABORED WITH NO SIGNS OF DISTRESS. PT TO BE MEDICATED PER EMAR. ALL SAFETY PRECAUTIONS ARE IN PLACE WITH CALL LIGHT IN REACH. WILL CONTINUE TO MONITOR
--- NOTE | 2020-02-18 11:50 | NUR ---
APRESOLINE 10MG ADMINISTERED BY HONEY RODRIGUEZ. TO ASSIST WITH BP
--- NOTE | 2020-02-18 12:36 | NUR ---
REASSESSMENT OF PAIN AT THIS TIME RESULTING IN 158/48. RESPIRATIONS ARE EVEN AND UNLABORED WITH NO SIGNS OF DISTRESS. ALL SAFETY AND ISOLATION PRECAUTIONS ARE IN PLACE WITH CALL LIGHT IN REACH. WILL CONTINUE TO MONITOR
--- NOTE | 2020-02-18 12:39 | NUR ---
REPORTED BM OF 177/69.. RESPIRATIONS ARE EVEN AND UNLABROED WITH NO SIGNS OF DISTRESS. ALL SAFETY PRECAUTIONS IN PLACE WITH CALL LIGHT IN REACH. WILL CONTINUE TO MONITOR
--- NOTE | 2020-02-18 12:49 | NUR ---
PT COMPLAINS OF HAVING NAUSEA. ZOFRAN TO BE ADMINISTERED. RESPRIATIONS ARE EVEN AND UNLABORED WITH NO SIGNS OF DISTRESS. ALL SAFETY PRECAUTIONS ARE IN PLACE WITH CALL LIGHT IN REACH.WILL CONTINUE TO MONITOR
--- NOTE | 2020-02-18 16:42 | NUR ---
PT RESTING IN SEMI FOWLERS POSITION WATCHING TV. RESPIRATIONS AE EVEN AND UNLABORED WIH NO DISTRESS NOTED. PT DENIES ANY PAIN OR DISCOMFORTS AT THIS TIME. ASESSMENT REMAINS THE SAME.ALL SAFETY AMD ISOLATION PRECAUTIONS ARE IN PLACE WITH CALL LIGHT IN REACH. WILL CONTINUE TO MONITOR.
--- NOTE | 2020-02-18 18:35 | NUR ---
PT COMPLAINS OF STOMACH HURTING . WHEN ASKED WHAT KIND OF PAIN, PT SHOOK HEAD NO.ASKED PT IF ZOFRAN GIVEN BEFORE HELP PT STATED "YES". ZOFRAN ADMINISTERED. ALL SAFETY PRECAUTIONS IN PLACE WITH CALL LIGHT IN REACH.W ILL CONTINUE TO MONITOR
--- NOTE | 2020-02-18 18:39 | NUR ---
PT REFUSED ZOFRAN. ASKED PT IF HER STOMACH WAS STILL HURTING, PT STATED "I SAID NO". ZOFRAN WASTED. PT REMAINS IN SEMI FOWLERS POSITION WITH RESPIRATIONS EVEN AND UNLABORED AND NO SIGNS OF DISTRESS. ALL SAFETY PRECAUTIONS ARE IN PLACE. WILL CONTINUE TOP MONITOR
--- NOTE | 2020-02-18 21:23 | NUR ---
PT SITTING IN BED. A&O TO SELF. PT ABLE TO TAKE MEDICATION PO WITHOUT DIFFICULTY. DENIES ANY PAIN AT THIS TIME. NON PRODUCTIVE COUGH NOTED. O2 VIA NC @2L IN PLACE. NO OTHER NEEDS AT THIS TIME. ASSESSMENT COMPLETED. DISCUSSED POC, REINFORCEMENT NEEDED. CALL LIGHT IN REACH. CONTINUE TO MONITOR.
--- NOTE | 2020-02-19 00:31 | NUR ---
PT SLEEPING IN BED. RESP EVEN AND UNLABORED. CONTINUE TO MONITOR.
[2020-02-19 01:21] VITALS: BP 143/86
[2020-02-19 03:48] VITALS: BP 157/63
[2020-02-19 05:33] LABS: HEMATOCRIT 36.8 % (37.0-47.0); IMMATURE GRANULOCYTES 4.5 % (0.0-5.0); MEAN CELL VOLUME 96.8 fL CALC (80.0-100.0); MEAN CORPUSCULAR HGB 28.9 pG CALC (26.0-32.0); MEAN CORPUSCULAR HGB CONC 29.9 g/dL CAL (32.0-36.0); NEUT# 4.68 thou/uL (2.00-7.15); RED BLOOD COUNT 3.8 mill/uL (4.20-5.60); RED CELL DISTRI WIDTH 13.8 % (11.5-15.5)
[2020-02-19 05:44] LABS: ALBUMIN 3.1 g/dL (3.2-5.0); BILIRUBIN, TOTAL 0.3 mg/dL (0.0-1.4); C-REACTIVE PROTEIN 2.5 mg/dL (0-0.9); CREATININE 1.3 mg/dL (0.5-1.0); POTASSIUM 3.8 mmol/l (3.5-5.1); TOTAL PROTEIN 6.1 g/dL (6.3-8.2)
--- NOTE | 2020-02-19 05:51 | NUR ---
PT LAYING IN BED. NO NEEDS AT THIS TIME. CONTINUE TO MONITOR
--- NOTE | 2020-02-19 10:21 | NUR ---
Blood sugar rechecked. 97 Resident refused breakfast. Spoke with the Dr. chanda price, Charles rizzo.
[2020-02-19 12:00] VITALS: BP 139/75
--- NOTE | 2020-02-19 13:22 | NUR ---
Blood sugar 91. Patient continues to refuse to eat, attempted to assist and resident became agitated.
[2020-02-19 15:55] VITALS: BP 143/53
[2020-02-19 19:00] VITALS: BP 122/62
--- NOTE | 2020-02-19 20:00 | NUR ---
RECIEVED REPORT FROM RN. PT RESTING IN SEMI FOWLERS POSITION UPON ALERT AND ORIENTED TO SELF. ASSESSMENT AND VITALS COMPLETED. RESPRIATIONS ARE EVEN AND UNLABORED WITH NO SIGNS OF DISTRESS NOTED. LUNG SOUNDS ARE DIMINISED, PT ON RA. HEART RHYTHM IS NORMAL WITH TELE IN PLACE. RADIAL PULSES ARE STRONG. PEDAL PULSES ARE WEAK. #20G IN RAC FLUSHED, SITE APPEARS HEALTHY AND PATENT.PT PRESENTS WITH SOME GEETA BUTTOCKS, Q2 TURNS ENFORCED. PT DENIES OF ANY PAIN OR DISCOMFORTS. ALL SAFETY AND ISOLATION PRECAUTIONS ARE IN PLACE WITH CALL LIGHT IN REACH. WILL CONTINUE TO MONITOR.
[2020-02-20] VITALS: BP 120/72
--- NOTE | 2020-02-20 00:20 | NUR ---
V/S OBTAINED BY OLD COIN DEALER, COMMUNICATIONS ENGINEERING TECHNICIAN AND AID IN TO CLEAN OF INCONTINENT URINE AND PROVIDE DOLLY-CARE. PT TOLERATED WELL. PT REPOSITIONED W/PILLOWS, FEET ELEVATED TO FLOAT. PILLOW UNDER LEFT SIDE FOR PRESSURE CARE. PT OFFERED PO FLUIDS/REFUSED TO DRINK. DENIES ANY OTHER NEEDS AT THIS TIME. CALL LIGHT AT SIDE.
[2020-02-20 04:00] VITALS: BP 128/72
--- NOTE | 2020-02-20 05:01 | NUR ---
PT IS RESTING IN BED WITH NO S/S OF DISTRESS NOTED. TELE IN PLACE. IV PATENT WITH NO REDDNESS OR SWELLING. ENCOURAGED TO WEAR NC. O2 FALLING BELOW 93 % PER LITER. CALL LIGHT IN REACH.
[2020-02-20 08:19] VITALS: BP 153/66
--- NOTE | 2020-02-20 08:19 | NUR ---
PT SITTING IN BED. A&O TO SELF. ORIENTED PT TO TIME AND PLACE, REINFORCEMENT NEEDED. PT VERBALIZES FEELING "SLEEPY AND TIRED". PT REMOVED O2 VIA NC AND IS CURRENTLY ON RA AT 92%, WILL CONTINUE TO MONITOR O2 AND APPLY O2 NEEDED. PT REFUSED MORNING MEDICATIONS. ASSESSMENT COMPLETED. DISCUSSED POC, REINFORCEMENT NEEDED. CALL LIGHT IN REACH. CONTINUE TO MONITOR.
--- NOTE | 2020-02-20 10:17 | NUR ---
PERICARE PROVIDED WITH THE HELP OF LIVE LAGUNAS. PT ABLE TO FOLLOW SIMPLE COMMANDS . O2 VIA NC @ 2L APPLIED FOR O2 AT 87% RA
[2020-02-20 10:39] VITALS: BP 156/58
--- NOTE | 2020-02-20 14:33 | NUR ---
PT SITTING IN BED. DENIES ANY NEEDS OR PAIN AT THIS TIME. PT CURRENTLY ON ROOM AIR, REFUSING TO PUT O2 VIA NC BACK IN PLACE. WILL CONTINUE TO MONITOR O2.
[2020-02-20 14:50] VITALS: BP 153/63
[2020-02-20 19:00] VITALS: BP 143/52
--- NOTE | 2020-02-20 20:00 | NUR ---
RECEIVED A CALLBACK FROM JACK[facility] OF [facility] STATING THAT THEY DO NOT HAVE TRANSPORTATION AVAILABLE TO TRANSPORT THIS EVENING, IF WE CAN TRANSPORT HER OVER VIA STRETCHER, THEY CAN TAKE HER, OTHERWISE THEY WILL HAVE TO GET HER TOMORROW. SUPERVISION NOTIFIED.
--- NOTE | 2020-02-20 20:04 | NUR ---
REPORT RECEIVED FROM HONEY ADAMS. PT RESTING IN BED SUPINE; ASSESSMENT AND VITALS COMPLETE ALERT AND ORIENTED. PT DENIES PAIN. RESPIRATIONS EVEN AND UNLABORED ON ROOM AIR AT REST. TELEMENTRY IN PLACE IN AFIB; EDEMA BILATERALLY. REDDENNING ON COCCYX. PLAN OF CARE REVIEWED. PT ENCOURAGED TO VERBALIZE CONCERNS. STATES UNDERSTANDING. SAFETY MEASURES IN PLACE. CALL LIGHT WITHIN REACH.
--- NOTE | 2020-02-20 21:04 | NUR ---
PT CLEANED OF INCONTINENT URINE AND PROVIDED DOLLY-CARE. NO STOOL AT THIS TIME, BUT PT WAS SOAKED WITH URINE. PT DENIES USE OF PUREWICK AT THIS TIME. PT POSITIIONED WITH PILLOWS TO RIGHT SIDE AND FEET FLOATING W/PILLOWS. PT REPORTS BEING COMFORTABLE UPON LEAVING ROOM. DENIES ANY OTHER NEEDS, DENIES ANYTHING TO EAT OR DRINK AT THIS TIME. CALL LIGHT W/IN REACH.
[2020-02-21] VITALS: BP 195/67
--- NOTE | 2020-02-21 00:59 | NUR ---
PT REPOSITIONED TO R.SIDE W/PILLOWS UNDER LEFT SIDE. PT ASKING TO REMOVE NC OF 02, BUT WE EXPLAINED TO HER THAT HER OXYGEN LEVELS WERE LOW AND SHE NEEDED TO KEEP IT ON TO MAINTAIN 92% OR GREATER. SHE NODDED IN UNDERSTANDING. DENIES ANY OTHER NEEDS AT THIS TIME.
--- NOTE | 2020-02-21 00:59 | NUR ---
PT RECEIVED PRN ARESOLINE FOR BLOOD PRESSURE 175/99. NC PLACED AT 2 LITERS FOR O2 SATURATION OF 87%. WILL CONTINUE TO MONITOR AND RE-EVALUATE.
[2020-02-21 01:30] VITALS: BP 153/56
[2020-02-21 04:09] VITALS: BP 163/63
--- NOTE | 2020-02-21 04:11 | NUR ---
PT RESTING IN SUPINE POSITION. VITALS TAKEN. TELE IN PLACE. IV APPEARS HEALTHY WITH NO REDDENING OR SWELLING. NO DISCOMFORT OR NEEDS EXPRESSED. CALL VILLAGRAN WITHIN REACH; WILL CONTINUE TO MONITOR.
[2020-02-21 05:25] LABS: HEMATOCRIT 38.6 % (37.0-47.0); HEMOGLOBIN 11.8 g/dl (12.0-16.0); MEAN CELL VOLUME 94.8 fL CALC (80.0-100.0); MEAN CORPUSCULAR HGB CONC 30.6 g/dL CAL (32.0-36.0); NEUT# 7.16 thou/uL (2.00-7.15); RED BLOOD COUNT 4.07 mill/uL (4.20-5.60); RED CELL DISTRI WIDTH 13.3 % (11.5-15.5)
[2020-02-21 05:51] LABS: ALKALINE PHOSPHATASE 49 u/l (38-126); ANION GAP 10 (6-22 (CALC)); BILIRUBIN, TOTAL 0.3 mg/dL (0.0-1.4); BUN 37 mg/dL (8-23); BUN/CREATININE RATIO 37 (12-20 (CALC)); C-REACTIVE PROTEIN 2.2 mg/dL (0-0.9); CARBON DIOXIDE 27 mmol/l (22-30); CHLORIDE 104 mmol/l (95-108); GFR 54 ML/MIN (>=60 (CALC)); GFR FOR AFR.AMER. > 60 ML/MIN (>=60 (CALC)); POTASSIUM 3.5 mmol/l (3.5-5.1); SGOT/AST 29 u/l (9-36); SODIUM 137 mmol/l (137-146); TOTAL PROTEIN 6.1 g/dL (6.3-8.2)
--- NOTE | 2020-02-21 08:15 | NUR ---
REPORT RECEIVED FROM HONEY SANTANA. PT RESTING IN BED SEMI FOWLERS; ALERT AND ORIENTED TO PERSON ONLY; UNABLE TO STATE PLACE OR YEAR. RESPIRATIONS SHALLOW AND SLIGHTLY LABORED; SPO2 84% ON ROOM AIR; OXYGEN APPLIED AT 2L VIA NC; SPO2 INCREASED TO 93%. MEDICATIONS GIVEN WHOLE WITH WATER. MORNING ACCU CHECK 50; ORANGE JUICE PROVIDED AND ASSISTED WITH BREAKFAST; F/U ACCU CHECK OF 154; NO INSULIN COVERAGE GIVEN. SAFETY MEASURES IN PLACE. NEEDS ARE ANTICIPATED BY STAFF; CALL LIGHT WITHIN REACH.
[2020-02-21 08:22] VITALS: BP 114/56
[2020-02-21 11:43] VITALS: BP 155/51
--- NOTE | 2020-02-21 13:29 | NUR ---
PARTIAL BED BATH GIVEN PRIOR TO ELECTRICAL CONTROLS DESIGNER BY [facility]. HEPARIN ADMINSITERED WELL.
--- NOTE | 2020-02-21 13:51 | NUR ---
IV site discontinued, cath intact. No edema , no redness, voices no discomfort.
--- NOTE | 2020-02-21 16:29 | NUR ---
[facility] ON UNIT.
--- NOTE | 2020-02-21 16:34 | NUR ---
Discharge instructions given. Patient verbalizes understanding of same. Discharged in stable condition via Wheelchair to [facility] with staff. All belongings sent with pt.
== END 2020-02-21 16:34 | DRG 177 ==
LOC: ED 02:49 → ED-I 08:50 → ED 09:34 → MS2 09:35
PROVIDERS: Family Medicine; Nurse Practitioner; Nurse Practitioner Family; ADMIT Internal Medicine; ATTEND Internal Medicine
DX: U07.1 COVID-19 (principal); J12.89 Other viral pneumonia; Z68.42 Body mass index [BMI] 45.0-49.9, adult; Z16.12 Extended spectrum beta lactamase (ESBL) resistance; F03.91 Unspecified dementia, unspecified severity, with behavioral disturbance; I12.9 Hypertensive chronic kidney disease with stage 1 through stage 4 chronic kidney disease, or unspecified chronic kidney disease; E11.649 Type 2 diabetes mellitus with hypoglycemia without coma; N18.9 Chronic kidney disease, unspecified; E66.9 Obesity, unspecified; N30.90 Cystitis, unspecified without hematuria; E78.5 Hyperlipidemia, unspecified; F32.9 Major depressive disorder, single episode, unspecified; I25.9 Chronic ischemic heart disease, unspecified; B96.20 Unspecified Escherichia coli [E. coli] as the cause of diseases classified elsewhere; E11.22 Type 2 diabetes mellitus with diabetic chronic kidney disease; Z66 Do not resuscitate; Z79.4 Long term (current) use of insulin
CPT/HCPCS: G0378; J0131; J0692; J1650; J2060; Q9967

== ENCOUNTER 2020-10-26 23:08 | Observation (INO) | payer MEDICARE, OTHER ==
[~2020-10-26] VITALS: Ht 162.6 cm; Wt 119.0 kg
[~2020-10-26 23:08] MED LIST changes: +BACTRIM DS1 TAB PO; +DEXAMETHASON6 MG PO
--- NOTE | 2020-10-26 23:23 | NUR ---
PT WAS TAKEN IMMEDIATELTY TO ROOM 10 NAD
[2020-10-26 23:28] LABS: HEMATOCRIT 34.3 % (37.0-47.0); HEMOGLOBIN 10.7 g/dl (12.0-16.0); IMMATURE GRANULOCYTES 1.6 % (0.0-5.0); MEAN CELL VOLUME 97.4 fL CALC (80.0-100.0); MEAN CORPUSCULAR HGB 30.4 pG CALC (26.0-32.0); MEAN CORPUSCULAR HGB CONC 31.2 g/dL CAL (32.0-36.0); NEUT# 4.53 thou/uL (2.00-7.15); RED BLOOD COUNT 3.52 mill/uL (4.20-5.60); RED CELL DISTRI WIDTH 13.5 % (11.5-15.5)
[2020-10-26 23:47] LABS: INTERNATIONAL NORMALIZED RATIO 0.9 RATIO (0.7-1.3); PROTHROMBIN TIME 9.6 SECONDS (9.0-12.5)
[2020-10-26 23:52] LABS: ALBUMIN 3.5 g/dL (3.2-5.0); BILIRUBIN, TOTAL 0.4 mg/dL (0.0-1.4); CREATININE 1.6 mg/dL (0.5-1.0); POTASSIUM 3.8 mmol/l (3.5-5.1); TOTAL PROTEIN 7.1 g/dL (6.3-8.2)
--- NOTE | 2020-10-27 00:45 | NUR ---
PT IS RESTING COMFORTABLY AND REPEATEDLY REMOVES O2 CANNULA FROM HER NARES.
--- NOTE | 2020-10-27 01:00 | NUR ---
PT REFUSED CT SCAN. TOLD LAMINATING PRESS OPERATOR "NO." DR. MURRAY NOTIFIED.
--- NOTE | 2020-10-27 01:14 | NUR ---
PT IS TOLERATING 2L NC AT THIS TIME AND IN NAD
--- NOTE | 2020-10-27 01:41 | NUR ---
PT IS ADMITTED AND REPORT TO BE CALLED TO THE MS TELE FLOOR. PT HAS BEEN CONNECTED TO TELE
[2020-10-27 02:00] VITALS: BP 129/62
--- NOTE | 2020-10-27 03:26 | NUR ---
RECEIVED PATIENT TO ROOM 270 VIA STRETCHER AND RN FROM THE ED IN STABLE CONDITION. PATIENT IS ALERT TO SELF. ON TELEMETRY SR WITH PVCs.O2 2L N/C NEEDED. CURRENTLY IN BED ON ROOM AIR WITHOUT DIFFICULTY. FALL PRECAUTIONS IN PLACE. ORIENTED TO ROOM AND CALL LIGHT SYSTEM. ASSESSMENT COMPLETE. BED IN LOW POSITION. CALL LIGHT WITHIN REACH.
[2020-10-27 04:00] VITALS: BP 155/67
[2020-10-27 05:23] LABS: URINE BILIRUBIN - DIPSTICK NEGATIVE (NEGATIVE); URINE BLOOD DIPSTICK MODERATE (NEGATIVE); URINE COLOR YELLOW; URINE GLUCOSE - DIPSTICK NEGATIVE (NEGATIVE); URINE KETONE NEGATIVE (NEGATIVE); URINE LEUK ESTERASE LARGE (NEGATIVE); URINE PROTEIN - DIPSTICK 100 mg/dL (NEG-TRACE); URINE UROBILINOGEN - DIPSTICK 0.2 E.U./dL (0.2)
[2020-10-27 05:25] LABS: URINE RBC 25-50 RBC/hpf (0-5); URINE WBC >100 WBC/hpf (0-5)
[2020-10-27 05:26] LABS: URINE BACTERIA MODERATE hpf; URINE EPITHELIAL CELLS MODERATE EPI/hpf (0-FEW); URINE NITRITE - DIPSTICK NEGATIVE (Negative)
[2020-10-27 05:38] LABS: CREATININE 1.6 mg/dL (0.5-1.0); POTASSIUM 3.9 mmol/l (3.5-5.1)
--- NOTE | 2020-10-27 07:00 | NUR ---
REPORT RECEIVED FROM PAULORN
[2020-10-27 08:19] VITALS: BP 162/63
--- NOTE | 2020-10-27 08:20 | NUR ---
PT APPEARS TO BE SLEEPING IN SEMI FOWLERS POSITION,WAKES EASILY TO VERBAL STIMULI;A&O TO SELF ONLY, WILL ATTEMPT TO RE-ORIENT NEEDED;VS OBTAINED AND ASSESSMENT COMPLETED;PT DENIES ANY CURRENT PAIN OR DISCOMFORTS,PAIN SCALE AND REPORTING EDUCATED;RESPIRATIONS EVEN AND UNLABORED ON RA,DIMINISHED LUNG SOUNDS NOTED;ABDOMEN DISTENDED/SOFT ON PALPATION AND ACTIVE IN ALL 4 QUADRANTS;PUREWICK CATHETER IN PLACE DRAINING YELLOW URINE;WEAK PEDAL PULSES;REDDENING NOTED TO COCCYX AND STAGE 2 TO LEFT BUTTOCK, WOUND ALSO TO RIGHT SHOULDER AND RIGHT GARZON, MINI LAB OPERATOR;TELE MONITORING IN PLACE;#20G TO LAC INFUSING NS @ 125ML/HR,SITE APPEARS HEALTHY;ACCUCHECK 133, NO COVERAGE NEEDED;PT DENIES ANY ADDITIONAL NEEDS AT THIS TIME;ENCOURAGED TO CALL FOR ASSISTANCE IF NEEDED;FALL PRECAUTIONS IN PLACE WITH BED IN THE LOWEST POSITION AND BED ALARM ON FOR SAFETY;CALL LIGHT IN REACH;WILL CONTINUE TO MONITOR
--- NOTE | 2020-10-27 09:28 | NUR ---
AND RICARDO ANRP AT BEDSIDE DISCUSSING POC.
[2020-10-27] MEDS ORDERED: ASPIRIN 81 LOW81 MG PO (10:29)
[2020-10-27] MEDS ORDERED: MACROBID100 M1 PO (10:29)
[2020-10-27 10:42] VITALS: BP 158/73
--- NOTE | 2020-10-27 11:55 | NUR ---
CALL PLACED TO [facility]. SPOKE WITH HONEY COOK AND REPORT GIVEN AT THIS TIME. JOYCE TO SET UP TRANSPORT BACK TO [facility]. AWAITING CALL BACK. PT RESTING IN SEMI FOWLERS POSITION;RESPIRATIONS EVEN AND UNLABORED ON RA;PT DENIES ANY CURRENT PAIN OR NEEDS;IV SITE PATENT INFUSING NS WITH EASE; ALL SAFETY PRECAUTIONS REMAIN IN PLACE WITH CALL LIGHT IN REACH;WILL CONTINUE TO MONITOR
--- NOTE | 2020-10-27 12:15 | NUR ---
IV SITE REMOVED WITH CATHETER INTACT FOR D/C AND TELE MONITORING REMOVED AT THIS TIME.BED BATH COMPLETED WITH DOLLY CARE.PT RE-POSITIONED INTO BED. AWAITING [facility] FOR TRANSPORTATION;FALL PRECAUTIONS REMAIN IN PLACE WITH CALL LIGHT IN REACH AND BED ALARM ON FOR SAFETY;WILL CONTINUE TO MONITOR
[2020-10-27 12:31] VITALS: BP 158/73
--- NOTE | 2020-10-27 14:35 | NUR ---
Discharge instructions given. Patient verbalizes understanding of same. [facility] All belongings sent with pt. PT TRANSPORTED TO [facility] FOR D/C TO [facility] VIA R STAFF VIA WHEELCHAIR. ALL BELONGINGS LEFT WITH PT.
--- NOTE | 2020-10-29 11:32 | NUR ---
FINAL URINE CX SHOWS PROTEUS RESISTANT TO MACROBID, SENSITIVE TO CEFAZOLIN. REPORTED TO DR OLIVERA, NEW ORDER FOR KEFLEX 500MG PO TID X7 RECEIVED. RESULTS REPORTED TO [facility] NURSE STEWART, FAXED C&S RESULTS WITH WRITTEN ORDER FOR NEW RX TO [phone].
== END 2020-10-27 14:35 ==
LOC: ED 23:08 → ED-I 10-27 01:00 → ED 10-27 01:20 → MS2 10-27 01:22
PROVIDERS: Emergency Medicine; ADMIT Internal Medicine; ATTEND Internal Medicine
DX: R07.9 Chest pain, unspecified (principal); R06.02 Shortness of breath; N39.0 Urinary tract infection, site not specified; I12.9 Hypertensive chronic kidney disease with stage 1 through stage 4 chronic kidney disease, or unspecified chronic kidney disease; E11.22 Type 2 diabetes mellitus with diabetic chronic kidney disease; N18.9 Chronic kidney disease, unspecified; I25.10 Atherosclerotic heart disease of native coronary artery without angina pectoris; E78.5 Hyperlipidemia, unspecified; F03.91 Unspecified dementia, unspecified severity, with behavioral disturbance; F32.9 Major depressive disorder, single episode, unspecified; Z79.4 Long term (current) use of insulin; Z20.822 Contact with and (suspected) exposure to COVID-19
CPT/HCPCS: G0378

== ENCOUNTER 2021-03-12 14:53 | Observation (INO) | payer MEDICARE, OTHER ==
[~2021-03-12] VITALS: Ht 162.6 cm; Wt 77.0 kg
[~2021-03-12 14:53] MED LIST changes: +ASPIRIN 81 LOW81 MG PO; +LEVEMIR100 UNIT SC; +MACROBID100 M1 PO; +PRAVASTATIN SOD20 MG PO; -TRULICITY0.75 MG/0. SC; +TRULICITY1.5 MG/0.5 SC
--- NOTE | 2021-03-12 15:16 | NUR ---
Reassessment of patient completed. No distress noted.
[2021-03-12 16:00] LABS: HEMATOCRIT 35.2 % (37.0-47.0); HEMOGLOBIN 11.2 g/dl (12.0-16.0); MEAN CELL VOLUME 98.6 fL CALC (80.0-100.0); MEAN CORPUSCULAR HGB 31.4 pG CALC (26.0-32.0); MEAN CORPUSCULAR HGB CONC 31.8 g/dL CAL (32.0-36.0); NEUT# 6.27 thou/uL (2.00-7.15); RED BLOOD COUNT 3.57 mill/uL (4.20-5.60); RED CELL DISTRI WIDTH 13.4 % (11.5-15.5)
[2021-03-12 16:24] LABS: ALBUMIN 4.1 g/dL (3.2-5.0); ALKALINE PHOSPHATASE 90 u/l (38-126); ANION GAP 12 (6-22 (CALC)); BILIRUBIN, TOTAL 0.4 mg/dL (0.0-1.4); BUN 30 mg/dL (8-23); BUN/CREATININE RATIO 18 (12-20 (CALC)); CARBON DIOXIDE 26 mmol/l (22-30); CHLORIDE 103 mmol/l (95-108); CREATININE 1.7 mg/dL (0.5-1.0); GFR 29 ML/MIN (>=60 (CALC)); GFR FOR AFR.AMER. 35 ML/MIN (>=60 (CALC)); LIPASE 69 u/l (23-300); POTASSIUM 3.8 mmol/l (3.5-5.1); SGOT/AST 19 u/l (9-36); SODIUM 137 mmol/l (137-146); TOTAL PROTEIN 7.8 g/dL (6.3-8.2)
--- NOTE | 2021-03-12 19:02 | NUR ---
PATIENT RETURNED FROM RADIOLOGY
--- NOTE | 2021-03-12 23:30 | NUR ---
REPORT WAS CALLED EARLIER BUT PT WAS INCONT OD STOOL AFTER GETTING SUPPOS AND DRINKING MAG CITRATE. PT CHANGED/CLEANSED.
--- NOTE | 2021-03-12 23:37 | NUR ---
TO FLOOR VIA STRETCHER
--- NOTE | 2021-03-13 | NUR ---
PATIENT ADMITTED FROM ER VIA STRETCHER WITH ER STAFF IN ATTENDANCE. PATIENT IS MAX TRANSFER FROM STRETCHER TO BED. PATIENT IS OBESE. PATIENT WITH HX OF DEMENTIA ADMITTED FOR ABD PAIN AND FECAL IMPACTION. PATIENT IS ORIENTED TO PERSON ONLY. PATIENT INCONT OF MODERATE AMT OF LIQUID BROWN STOOL. PATIENT PROVIDED WITH PERICARE USING SOAP AND WATER. TURNED AND REPOSITIONED. BREIF APPLIED FOR INCONT. ER STAFF STATES THAT PATIENT HAD LARGE SOFT BROWN STOOL BEFORE COMING UP TO THE FLOOR. PATIENT WITH IV SITE TO RAC INTACT WITH IVF NS PATENT AND INFUSING ORDERED. PATIENT IS MAX ASSIST-ELIU LIFT AT [facility]. PATIENT WITH DNR PAPER FROM [facility]. TELE MONITOR IN PLACE AND READING SR-71 AT THIS TIME. ATTEMPT TO ORIENT PATIENT TO ROOM AND SURROUNDINGS WITH LITTLE SUCCESS. ATTEMPT TO INSTRUCT PATIENT REGUARDING USE OF NURSE CALL LIGHT WITH LITTLE SUCCESS. PATIENT TAKING SIPS OF PO FLUIDS WITHOUT ANY DIFFICULTY. CALL LIGHT IN REACH. WILL CONT TO MONITOR.
[2021-03-13 00:28] VITALS: BP 128/64
--- NOTE | 2021-03-13 04:30 | NUR ---
PATIENT INCONT OF MODERATE AMT OF LIQUID BROWN STOOL. PROVIDED WITH PERICARE. TURNED AND REPOSITONED. TELE MONITOR REMAINS IN PLACE. IVF NS PATENT AND INFUSING VIA RAC SITE AT 100CC/HR. REMAINS CONFUSED. CALL LIGHT IN REACH. WILL CONT TO MONITOR.
[2021-03-13 05:12] VITALS: BP 130/74
[2021-03-13 05:51] LABS: HEMATOCRIT 32.9 % (37.0-47.0); HEMOGLOBIN 10.4 g/dl (12.0-16.0); MEAN CELL VOLUME 99.7 fL CALC (80.0-100.0); MEAN CORPUSCULAR HGB 31.5 pG CALC (26.0-32.0); MEAN CORPUSCULAR HGB CONC 31.6 g/dL CAL (32.0-36.0); RED BLOOD COUNT 3.3 mill/uL (4.20-5.60); RED CELL DISTRI WIDTH 13.5 % (11.5-15.5)
[2021-03-13 06:05] LABS: CREATININE 1.4 mg/dL (0.5-1.0); POTASSIUM 4.1 mmol/l (3.5-5.1)
--- NOTE | 2021-03-13 06:55 | NUR ---
REPORT FROM FANI MÉNDEZ. ASSUMED PT CARE.
--- NOTE | 2021-03-13 07:41 | NUR ---
PT MEDICATED ORDERED. PRN MIRALAX ADMINISTERED AT THIS TIME, IF EFFECTIVE CAN HOLD OFF ON ENEMA PER D. PETER LAUREN. PT DENIES ANY PAIN OR DISCOMFORT. A&O X1. CALL LIGHT WITHIN REACH. WILL CONTINUE TO MONITOR.
[2021-03-13 07:49] VITALS: BP 144/68
--- NOTE | 2021-03-13 10:24 | NUR ---
PT TURN AND REPOSITIONED IN BED. INCONTINENT OF MODERATE AMOUNT OF SOFT PASTY BROWN STOOL AND INCONTINENCE OF BLADDER WITH LARGE VOID NOTED. PT TOLERATED WELL. CALL LIGHT WITHIN REACH. WILL CONTINUE TO MONITOR.
[2021-03-13 10:30] VITALS: BP 149/67
[2021-03-13] MEDS ORDERED: SENNA LAX8.6 M1 PO (11:54)
[2021-03-13] MEDS ORDERED: DULCOLAX10 MG RE (11:54)
[2021-03-13] MEDS ORDERED: MIRALAX17 GM/SCOO PO (11:54)
--- NOTE | 2021-03-13 12:45 | NUR ---
PT REPOSITIONED AND SAT UP IN BED FOR LUNCH. PT DROWSY AND REQUESTING TO SLEEP. ENCOURAGED PT TO EAT LUNCH. CALL LIGHT WITHIN REACH. WILL CONTINUE TO MONITOR.
[2021-03-13 15:10] VITALS: BP 157/75
--- NOTE | 2021-03-13 15:49 | NUR ---
NURSE TO NURSE REPORT CALLED TO JOSH AT [facility], PENDING CMM INSPECTOR @ 1600.
--- NOTE | 2021-03-13 16:10 | NUR ---
IV site discontinued, cath intact. No edema , no redness, voices no discomfort.
--- NOTE | 2021-03-13 16:10 | NUR ---
Discharge instructions given. Patient verbalizes understanding of same. Discharged in stable condition via Wheelchair to [facility] with staff. All belongings sent with pt.
== END 2021-03-13 16:17 ==
LOC: ED 14:53 → ED-I 19:24 → ED 19:50 → MS2 19:51
PROVIDERS: Emergency Medicine; ADMIT Hospitalist; ATTEND Hospitalist
DX: K56.41 Fecal impaction (principal); I12.9 Hypertensive chronic kidney disease with stage 1 through stage 4 chronic kidney disease, or unspecified chronic kidney disease; E11.22 Type 2 diabetes mellitus with diabetic chronic kidney disease; N18.9 Chronic kidney disease, unspecified; F03.91 Unspecified dementia, unspecified severity, with behavioral disturbance; F32.9 Major depressive disorder, single episode, unspecified; E78.5 Hyperlipidemia, unspecified; I25.9 Chronic ischemic heart disease, unspecified; Z79.4 Long term (current) use of insulin; Z20.822 Contact with and (suspected) exposure to COVID-19
CPT/HCPCS: G0378; Q9967

== ENCOUNTER 2021-05-25 23:28 | Emergency (ER) | payer MEDICARE, OTHER ==
[~2021-05-25] VITALS: Ht 162.6 cm; Wt 115.0 kg
[~2021-05-25 23:28] MED LIST changes: +MIRALAX17 GM/SCOO PO; +SENNA LAX8.6 M1 PO
[2021-05-26 00:24] LABS: HEMATOCRIT 38.4 % (37.0-47.0); HEMOGLOBIN 11.8 g/dl (12.0-16.0); IMMATURE GRANULOCYTES 0.6 % (0.0-5.0); MEAN CELL VOLUME 100.5 fL CALC (80.0-100.0); MEAN CORPUSCULAR HGB 30.9 pG CALC (26.0-32.0); MEAN CORPUSCULAR HGB CONC 30.7 g/dL CAL (32.0-36.0); NEUT# 13.09 thou/uL (2.00-7.15); RED BLOOD COUNT 3.82 mill/uL (4.20-5.60); RED CELL DISTRI WIDTH 13.4 % (11.5-15.5)
[2021-05-26 00:33] LABS: ALBUMIN 4.1 g/dL (3.2-5.0); BILIRUBIN, TOTAL 0.4 mg/dL (0.0-1.4); CREATININE 1.9 mg/dL (0.5-1.0); TOTAL PROTEIN 8.2 g/dL (6.3-8.2)
[2021-05-26 01:27] LABS: INTERNATIONAL NORMALIZED RATIO 0.9 RATIO (0.7-1.3); PROTHROMBIN TIME 9.2 SECONDS (9.0-12.5)
[2021-05-26 02:06] VITALS: BP 115/87
== END 2021-05-26 02:06 | disposition short-term general hospital (02) ==
LOC: ED 23:28
PROVIDERS: Emergency Medicine
DX: I21.4 Non-ST elevation (NSTEMI) myocardial infarction (principal); E11.22 Type 2 diabetes mellitus with diabetic chronic kidney disease; I12.9 Hypertensive chronic kidney disease with stage 1 through stage 4 chronic kidney disease, or unspecified chronic kidney disease; N18.9 Chronic kidney disease, unspecified; F03.90 Unspecified dementia, unspecified severity, without behavioral disturbance, psychotic disturbance, mood disturbance, and anxiety; E78.5 Hyperlipidemia, unspecified; Z79.4 Long term (current) use of insulin; Z20.822 Contact with and (suspected) exposure to COVID-19
CPT/HCPCS: J1644

== ENCOUNTER 2021-07-21 21:33 | Observation (INO) | payer MEDICARE, OTHER ==
[~2021-07-21] VITALS: Ht 162.6 cm; Wt 119.0 kg
[2021-07-21 22:09] LABS: HEMATOCRIT 34.7 % (37.0-47.0); HEMOGLOBIN 10.7 g/dl (12.0-16.0); IMMATURE GRANULOCYTES 2.1 % (0.0-5.0); MEAN CELL VOLUME 100.9 fL CALC (80.0-100.0); MEAN CORPUSCULAR HGB 31.1 pG CALC (26.0-32.0); MEAN CORPUSCULAR HGB CONC 30.8 g/dL CAL (32.0-36.0); NEUT# 4.2 thou/uL (2.00-7.15); RED BLOOD COUNT 3.44 mill/uL (4.20-5.60)
[2021-07-21 22:30] LABS: ALBUMIN 3.7 g/dL (3.2-5.0); BILIRUBIN, TOTAL 0.4 mg/dL (0.0-1.4); CREATININE 1.9 mg/dL (0.5-1.0); MAGNESIUM 1.7 mg/dL (1.6-2.3); TOTAL PROTEIN 7.6 g/dL (6.3-8.2)
[2021-07-21 22:32] LABS: ACT PARTIAL THROMBO TIME 24.7 SECONDS (20.0-32.5); INTERNATIONAL NORMALIZED RATIO 0.9 RATIO (0.7-1.3); PROTHROMBIN TIME 9.9 SECONDS (9.0-12.5)
[2021-07-22] VITALS (9 sets, daily range): BP systolic 96–202; BP diastolic 40–81
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
--- NOTE | 2021-07-22 02:15 | NUR ---
REPORT CALLED TO [facility]
--- NOTE | 2021-07-22 02:30 | NUR ---
TRANSFERED BY STRETCHER ON TRLEMENTRY TO ROOM 271/ PT DENIES PAIN CONDITION STABLE
--- NOTE | 2021-07-22 02:45 | NUR ---
PHYSICAL ASSESMENT COMPLETE. PT CURRENTLY DENIES PAIN OR DISCOMFORT. SCHEDULED MEDICATIONS AND PRN MEDICATION ADMINISTERED, SEE E-MAR. PT DENIES ANY NEEDS AT THIS TIME. PLAN OF CARE REVIEWED, PT DENIES QUESTIONS, VERBALIZES UNDERSTANDING. ITEMS WITHIN REACH, BED LOCKED IN LOW POSITION W/ BEDRAILS UP X2. CALL VILLAGRAN WITHIN REACH, AGREES TO CALL PRN.
--- NOTE | 2021-07-22 03:50 | NUR ---
PT LAYING IN BED WITH EYES CLOSED, APPEARS TO BE SLEEPING, APPEARS COMFORTABLE AND IN NO DISTRESS. RESPIRATIONS REGULAR AND UNLABORED. ITEMS REMAIN WITHIN REACH, CALL VILLAGRAN REMAINS WITHIN REACH. BED REMAINS LOCKED AND IN LOW POSITION WITH BEDRAILS UP X2. WILL CONTINUE TO MONITOR.
[2021-07-22 06:23] LABS: HEMATOCRIT 33.9 % (37.0-47.0); HEMOGLOBIN 10.5 g/dl (12.0-16.0); MEAN CELL VOLUME 101.8 fL CALC (80.0-100.0); MEAN CORPUSCULAR HGB 31.5 pG CALC (26.0-32.0); RED BLOOD COUNT 3.33 mill/uL (4.20-5.60)
[2021-07-22 06:31] LABS: CHOLESTEROL HDL RATIO 6.5 (<4.4 (CALC)); CREATININE 1.6 mg/dL (0.5-1.0); MAGNESIUM 1.7 mg/dL (1.6-2.3); POTASSIUM 4.1 mmol/l (3.5-5.1)
--- NOTE | 2021-07-22 10:00 | NUR ---
REPORT RECEIVE FROM CULLEN MÉNDEZ
[2021-07-22 13:17] LABS: URINE BILIRUBIN - DIPSTICK NEGATIVE (NEGATIVE); URINE BLOOD DIPSTICK MODERATE (NEGATIVE); URINE COLOR YELLOW; URINE GLUCOSE - DIPSTICK 250 mg/dL (NEGATIVE); URINE KETONE NEGATIVE (NEGATIVE); URINE PROTEIN - DIPSTICK 30 mg/dL (NEG-TRACE); URINE UROBILINOGEN - DIPSTICK 0.2 E.U./dL (0.2)
[2021-07-22 13:18] LABS: URINE LEUK ESTERASE LARGE (NEGATIVE); URINE NITRITE - DIPSTICK NEGATIVE (Negative)
[2021-07-22 13:24] LABS: URINE BACTERIA FEW hpf; URINE EPITHELIAL CELLS MANY EPI/hpf (0-FEW)
--- NOTE | 2021-07-22 14:50 | NUR ---
PATIENT STABLE, ORDER FOR DISCHARGED COME BACK TO REHAB. GIVED TO REPPORT TO TSEWART.
--- NOTE | 2021-07-22 19:00 | NUR ---
RECIEVED REPORT FROM HONEY JOHNSON
--- NOTE | 2021-07-22 19:58 | NUR ---
PT RESTING IN SEMI FOWLERS. PT IS A/OX1. ASSESSMENT COMPLETED. RESPIRATIONS EVEN AND UNLABORED. LUNG SOUNDS CLEAR. HEART RHYTHM NORMAL WITH TELE MONTORING IN PLACE, SR PER ER MONITORING.BOWEL SOUNDS ACTIVE. #20G RW DISLODGED BY PT, FOUND IN SHEETS WITH CATHS TILL INTACT. STAGE ONE NOTED TO COCCYX, FREQUENT TURNING ENFORCED. PT DENIES OF ANY PAINS. ELEVATED BP REPORTED. REASSESSMENT AT THIS TIME RESULTING IN 199/79, HR 63. DR MELGAR TO BE INFORMED. ALL SAFTEY PRECAUTIONS ARE IN PLACE WITH CALL LIGHT IN REACH. WILL CONTINUE TO MONITOR.
--- NOTE | 2021-07-22 21:50 | NUR ---
REASSESSMENT OF BP AFTER SCHEDULED MEDICATIONS ADMINISTERED. BP 125/65, HR 62
--- NOTE | 2021-07-22 22:16 | NUR ---
ATTEMPTED TO CALL [facility] TO OBTAIN TIME FOR GENERAL UTILITY WORKER. [employer] INFORMED THAT A CALL WILL BE RETURNED. NAME AND NUMBER LEFT.
--- NOTE | 2021-07-22 22:47 | NUR ---
CALL RECIEVED BACK FROM CECILIA AT [facility]. [employer] INFORMED THAT TRANSPORTATION IS NOT AVAILABLE AT THIS TIME BUT WILL BE SET FOR TOMORROW. [employer] BOOKMAKER INFORMED.
--- NOTE | 2021-07-22 23:40 | NUR ---
WRITTER INFORMED OF TELE OFF. UPON ENTERING ROOM BLANKETS WERE ON THE FLOOR AND PT REMOVED TELE. PT INFORMED OF THE NEED FOR TELE. PT BGAIN YELLING " O DONT WANT IT!" REFUSED TO ALLOW WRITTER TO REAPPLY. DR MELGAR INFORMED. ORDERS TO DC TELE. ER INFORMED.
--- NOTE | 2021-07-23 00:04 | NUR ---
PT SLEEPING IN SEMI FOWLERS POSITION. RESPIRATIONS EVEN AND UNLABORED ON ROOM AIR. NO SIGNS OF ANY DISTRESS. ALL SAFETY PRECAUTIONS ARE IN PLACE WITH CALL LIGHT IN REACH. WILL CONTINUE TO MONITOR
--- NOTE | 2021-07-23 03:49 | NUR ---
PT RESTING IN SEMI FOWLERS POSITION. PT REMAINS A/OX1. PT STATES SHE GETTING READY TO GO HOME. PT INFORMED OF DC LATER IN MORNING. PT VERBALIZED UNDERSTANDING. RESPIRATIONS REMAINS EVEN AND UNLABORED. NO IV SITE, AWARE. PT DENIES OF ANY ADDITIONAL NEEDS AT THIS TIME. ALL SAFTEY PRECAUTIONS ARE IN PLACE WITH CALL LIGHT IN REACH. WILL CONTINUE TO MONITOR.
[2021-07-23 04:00] VITALS: BP 174/76
--- NOTE | 2021-07-23 05:03 | NUR ---
PT INCONT OF LARGE AMOUNT OF URINE AT THIS TIME. DOLLY CARE PROVIDED BY BID WRITER AND AID. NEW LINEN PROVIDED.
[2021-07-23 05:24] VITALS: BP 166/73
--- NOTE | 2021-07-23 05:34 | NUR ---
REASSESSMENT OF BP RESULTING IN 166/73, HR 60. PT REMAINS RESTING IN SEMI FOWLERS POSITION. RESPIRATIONS EVEN AND UNLABORED. NO SIGNS OF DISTRESS.
--- NOTE | 2021-07-23 07:38 | NUR ---
RECEIVE REPORT FROM IRISH MÉNDEZ. PATIENT STABLE AT THIS TIME. SLEEPING. NO DISTRES AT THIS TIME. PREVENTIVE ROUNDING EVERY HOUR FOR FALL PRECAUTIONS AND CHANGE POSITION.
[2021-07-23 08:46] VITALS: BP 169/73
--- NOTE | 2021-07-23 10:23 | NUR ---
Patient come back to [facility]. STABLE.
== END 2021-07-23 09:40 ==
LOC: ED 21:33 → ED-I 07-22 00:10 → ED 07-22 00:26 → MS2 07-22 00:27
PROVIDERS: ADMIT Hospitalist; ATTEND Hospitalist
DX: R07.9 Chest pain, unspecified (principal); K59.00 Constipation, unspecified; I12.9 Hypertensive chronic kidney disease with stage 1 through stage 4 chronic kidney disease, or unspecified chronic kidney disease; E11.22 Type 2 diabetes mellitus with diabetic chronic kidney disease; N18.9 Chronic kidney disease, unspecified; F03.91 Unspecified dementia, unspecified severity, with behavioral disturbance; E78.5 Hyperlipidemia, unspecified; F32.A Depression, unspecified; I25.2 Old myocardial infarction; Z79.4 Long term (current) use of insulin; Z20.822 Contact with and (suspected) exposure to COVID-19

== ENCOUNTER 2021-08-17 16:29 | Emergency (ER) | payer MEDICARE, OTHER ==
[~2021-08-17] VITALS: Ht 162.6 cm; Wt 157.0 kg
[2021-08-17 17:18] LABS: HEMATOCRIT 33.9 % (37.0-47.0); HEMOGLOBIN 10.4 g/dl (12.0-16.0); IMMATURE GRANULOCYTES 1.7 % (0.0-5.0); MEAN CELL VOLUME 103.4 fL CALC (80.0-100.0); MEAN CORPUSCULAR HGB 31.7 pG CALC (26.0-32.0); MEAN CORPUSCULAR HGB CONC 30.7 g/dL CAL (32.0-36.0); NEUT# 10.22 thou/uL (2.00-7.15); RED BLOOD COUNT 3.28 mill/uL (4.20-5.60); RED CELL DISTRI WIDTH 13.9 % (11.5-15.5)
[2021-08-17 17:36] LABS: ALBUMIN 3.6 g/dL (3.2-5.0); BILIRUBIN, TOTAL 0.4 mg/dL (0.0-1.4); POTASSIUM 4.2 mmol/l (3.5-5.1); TOTAL PROTEIN 7.5 g/dL (6.3-8.2)
[2021-08-17 17:37] LABS: ACT PARTIAL THROMBO TIME 25.4 SECONDS (20.0-32.5); PROTHROMBIN TIME 10.9 SECONDS (9.0-12.5)
[2021-08-17 18:43] LABS: URINE BILIRUBIN - DIPSTICK NEGATIVE (NEGATIVE); URINE BLOOD DIPSTICK MODERATE (NEGATIVE); URINE COLOR YELLOW; URINE GLUCOSE - DIPSTICK 250 mg/dL (NEGATIVE); URINE KETONE NEGATIVE (NEGATIVE); URINE LEUK ESTERASE MODERATE (NEGATIVE); URINE NITRITE - DIPSTICK POSITIVE (Negative); URINE PROTEIN - DIPSTICK 100 mg/dL (NEG-TRACE); URINE SPECIFIC GRAVITY 1.025; URINE UROBILINOGEN - DIPSTICK 0.2 E.U./dL (0.2)
[2021-08-17 18:46] LABS: URINE BACTERIA FEW hpf; URINE SQUAMOUS EPITHELIAL CELL MODERATE EPI/hpf (0-FEW); URINE WBC >100 WBC/hpf (0-5)
[2021-08-17 21:00] VITALS: BP 107/69
== END 2021-08-17 21:15 | disposition short-term general hospital (02) ==
LOC: ED 16:29
DX: I21.4 Non-ST elevation (NSTEMI) myocardial infarction (principal); G93.40 Encephalopathy, unspecified; J18.9 Pneumonia, unspecified organism; G93.9 Disorder of brain, unspecified; I12.9 Hypertensive chronic kidney disease with stage 1 through stage 4 chronic kidney disease, or unspecified chronic kidney disease; E11.22 Type 2 diabetes mellitus with diabetic chronic kidney disease; N18.9 Chronic kidney disease, unspecified; F03.90 Unspecified dementia, unspecified severity, without behavioral disturbance, psychotic disturbance, mood disturbance, and anxiety; E78.5 Hyperlipidemia, unspecified; R82.71 Bacteriuria; Z78.1 Physical restraint status; Z66 Do not resuscitate; Z79.4 Long term (current) use of insulin; Z20.822 Contact with and (suspected) exposure to COVID-19

== ENCOUNTER 2022-01-12 21:18 | Observation (INO) | payer MEDICARE, OTHER ==
[~2022-01-12] VITALS: Ht 162.6 cm; Wt 104.0 kg
[~2022-01-12 21:18] MED LIST changes: -AMLODIPINE2.5 MG PO
[2022-01-12 21:28] VITALS: BP 159/52
[2022-01-12 21:41] VITALS: BP 97/29
[2022-01-12 21:58] LABS: HEMATOCRIT 39.6 % (37.0-47.0); HEMOGLOBIN 11.6 g/dl (12.0-16.0); IMMATURE GRANULOCYTES 2.1 % (0.0-5.0); MEAN CELL VOLUME 100.3 fL CALC (80.0-100.0); MEAN CORPUSCULAR HGB 29.4 pG CALC (26.0-32.0); MEAN CORPUSCULAR HGB CONC 29.3 g/dL CAL (32.0-36.0); NEUT# 7.11 thou/uL (2.00-7.15); RED BLOOD COUNT 3.95 mill/uL (4.20-5.60)
[2022-01-12 22:01] VITALS: BP 73/54
[2022-01-12 22:05] LABS: ALBUMIN 3.7 g/dL (3.2-5.0); BILIRUBIN, TOTAL 0.3 mg/dL (0.0-1.4); CREATININE 1.3 mg/dL (0.5-1.0); TOTAL PROTEIN 7.4 g/dL (6.3-8.2)
[2022-01-12 22:24] LABS: URINE BILIRUBIN - DIPSTICK NEGATIVE (NEGATIVE); URINE BLOOD DIPSTICK SMALL (NEGATIVE); URINE COLOR YELLOW; URINE GLUCOSE - DIPSTICK 250 mg/dL (NEGATIVE); URINE KETONE NEGATIVE (NEGATIVE); URINE LEUK ESTERASE NEGATIVE (NEGATIVE); URINE PROTEIN - DIPSTICK 100 mg/dL (NEG-TRACE); URINE UROBILINOGEN - DIPSTICK 0.2 E.U./dL (0.2)
[2022-01-12 22:26] LABS: URINE NITRITE - DIPSTICK NEGATIVE (Negative); URINE SQUAMOUS EPITHELIAL CELL FEW EPI/hpf (0-FEW); URINE WBC 0-2 WBC/hpf (0-5)
[2022-01-12 22:33] VITALS: BP 93/53
[2022-01-12] MEDS ORDERED: METOPROL TAR25 MG PO (22:41)
[2022-01-12] MEDS ORDERED: [UNRECOGNIZED DRUG - CODE] (22:41)
[2022-01-12] MEDS ORDERED: MILK OF MAG30 ML/UDC PO (22:41)
[2022-01-12] MEDS ORDERED: MIRTAZAPINE15 MG PO (22:42)
[2022-01-12] MEDS ORDERED: NYAMYC100000 UNI TOP (22:43)
[2022-01-12] MEDS ORDERED: PROTONIX40 M2 PO (22:43)
[2022-01-12] MEDS ORDERED: ACETAMINOPHEN325 MG PO (22:45)
[2022-01-12] MEDS ORDERED: ASPIRIN81 MG PO (22:46)
[2022-01-12] MEDS ORDERED: DEPAKOTE125 MG PO (22:47)
[2022-01-12] MEDS ORDERED: CLOPIDOGREL75 MG PO (22:47)
[2022-01-12] MEDS ORDERED: ISORDIL10 MG PO (22:49)
[2022-01-12 23:03] VITALS: BP 103/70
[2022-01-13 00:37] VITALS: BP 152/51
[2022-01-13 04:36] VITALS: BP 148/50
[2022-01-13 05:35] LABS: HEMATOCRIT 34.2 % (37.0-47.0); HEMOGLOBIN 10.1 g/dl (12.0-16.0); IMMATURE GRANULOCYTES 2.7 % (0.0-5.0); MEAN CELL VOLUME 101.5 fL CALC (80.0-100.0); MEAN CORPUSCULAR HGB CONC 29.5 g/dL CAL (32.0-36.0); NEUT# 5.11 thou/uL (2.00-7.15); RED BLOOD COUNT 3.37 mill/uL (4.20-5.60)
[2022-01-13 05:38] LABS: CREATININE 1.3 mg/dL (0.5-1.0); POTASSIUM 3.4 mmol/l (3.5-5.1)
[2022-01-13 06:45] VITALS: BP 151/52
[2022-01-13] MEDS ORDERED: KURIC2 % TOP (12:55)
[2022-01-13] MEDS ORDERED: ADULT ASPIRIN R81 MG PO (13:01)
[2022-01-13 15:52] VITALS: BP 187/76
[2022-01-13 16:35] VITALS: BP 154/58
[2022-01-13 19:06] VITALS: BP 146/39
[2022-01-14] VITALS (7 sets, daily range): BP systolic 101–136; BP diastolic 36–52
[2022-01-14 05:54] LABS: HEMATOCRIT 34.2 % (37.0-47.0); HEMOGLOBIN 10.2 g/dl (12.0-16.0); MEAN CELL VOLUME 100.9 fL CALC (80.0-100.0); MEAN CORPUSCULAR HGB 30.1 pG CALC (26.0-32.0); MEAN CORPUSCULAR HGB CONC 29.8 g/dL CAL (32.0-36.0); RED BLOOD COUNT 3.39 mill/uL (4.20-5.60); RED CELL DISTRI WIDTH 15.3 % (11.5-15.5)
[2022-01-14 06:15] LABS: BILIRUBIN, TOTAL 0.3 mg/dL (0.0-1.4); CREATININE 1.4 mg/dL (0.5-1.0); POTASSIUM 3.9 mmol/l (3.5-5.1)
[2022-01-14 06:43] LABS: ALBUMIN 2.8 g/dL (3.2-5.0); MAGNESIUM 1.4 mg/dL (1.6-2.3); TOTAL PROTEIN 5.6 g/dL (6.3-8.2)
[2022-01-15 05:23] VITALS: BP 131/44
[2022-01-15 06:18] LABS: HEMATOCRIT 33.8 % (37.0-47.0); HEMOGLOBIN 9.8 g/dl (12.0-16.0); MEAN CELL VOLUME 102.1 fL CALC (80.0-100.0); MEAN CORPUSCULAR HGB 29.6 pG CALC (26.0-32.0); NEUT# 3.03 thou/uL (2.00-7.15); RED BLOOD COUNT 3.31 mill/uL (4.20-5.60); RED CELL DISTRI WIDTH 15.7 % (11.5-15.5)
[2022-01-15 06:48] LABS: ALBUMIN 2.6 g/dL (3.2-5.0); CREATININE 1.7 mg/dL (0.5-1.0); POTASSIUM 3.6 mmol/l (3.5-5.1); TOTAL PROTEIN 5.3 g/dL (6.3-8.2)
[2022-01-15 06:58] LABS: BILIRUBIN, TOTAL 0.1 mg/dL (0.0-1.4); MAGNESIUM 2.1 mg/dL (1.6-2.3)
[2022-01-15 07:05] VITALS: BP 144/43
[2022-01-15 10:46] VITALS: BP 129/59
[2022-01-15 14:57] VITALS: BP 130/95
[2022-01-15 18:47] VITALS: BP 152/57
[2022-01-15 19:00] VITALS: BP 152/57
[2022-01-16 04:00] VITALS: BP 137/43
[2022-01-16 04:04] VITALS: BP 137/43
[2022-01-16 06:14] VITALS: BP 155/49
[2022-01-16 06:27] LABS: HEMATOCRIT 31.6 % (37.0-47.0); HEMOGLOBIN 9.7 g/dl (12.0-16.0); IMMATURE GRANULOCYTES 2.1 % (0.0-5.0); MEAN CELL VOLUME 96.6 fL CALC (80.0-100.0); MEAN CORPUSCULAR HGB 29.7 pG CALC (26.0-32.0); MEAN CORPUSCULAR HGB CONC 30.7 g/dL CAL (32.0-36.0); NEUT# 2.45 thou/uL (2.00-7.15); RED BLOOD COUNT 3.27 mill/uL (4.20-5.60); RED CELL DISTRI WIDTH 15.3 % (11.5-15.5)
[2022-01-16 06:53] LABS: ALBUMIN 2.6 g/dL (3.2-5.0); BILIRUBIN, TOTAL 0.1 mg/dL (0.0-1.4); CREATININE 1.6 mg/dL (0.5-1.0); POTASSIUM 3.5 mmol/l (3.5-5.1); TOTAL PROTEIN 5.3 g/dL (6.3-8.2)
[2022-01-16] MEDS ORDERED: ISOSORB MONO30 MG PO (12:10)
[2022-01-16] MEDS ORDERED: KEFLEX500 MG PO ×2 (12:14→12:18)
[2022-01-16] MEDS ORDERED: CIPROFLOXACN750 MG PO ×2 (12:14→12:18)
[2022-01-16 15:19] VITALS: BP 114/73
== END 2022-01-16 16:39 ==
LOC: ED 21:18 → MS2 23:11
PROVIDERS: Family Medicine; Nurse Practitioner; ADMIT Internal Medicine; ATTEND Internal Medicine
PROC: 0T9B70Z Drainage of Bladder with Drainage Device, Via Natural or Artificial Opening (ICD-10-PCS; principal; 2022-01-12)
DX: A41.9 Sepsis, unspecified organism (principal); I95.9 Hypotension, unspecified; L03.312 Cellulitis of back [any part except buttock and flank]; S30.810A Abrasion of lower back and pelvis, initial encounter; N39.0 Urinary tract infection, site not specified; I13.0 Hypertensive heart and chronic kidney disease with heart failure and stage 1 through stage 4 chronic kidney disease, or unspecified chronic kidney disease; E11.22 Type 2 diabetes mellitus with diabetic chronic kidney disease; N18.9 Chronic kidney disease, unspecified; I50.9 Heart failure, unspecified; E78.5 Hyperlipidemia, unspecified; I25.10 Atherosclerotic heart disease of native coronary artery without angina pectoris; K59.00 Constipation, unspecified; E66.9 Obesity, unspecified; F03.91 Unspecified dementia, unspecified severity, with behavioral disturbance; F32.9 Major depressive disorder, single episode, unspecified; B95.61 Methicillin susceptible Staphylococcus aureus infection as the cause of diseases classified elsewhere; B96.5 Pseudomonas (aeruginosa) (mallei) (pseudomallei) as the cause of diseases classified elsewhere; B95.62 Methicillin resistant Staphylococcus aureus infection as the cause of diseases classified elsewhere; X58.XXXA Exposure to other specified factors, initial encounter; Y92.129 Unspecified place in nursing home as the place of occurrence of the external cause; Z68.39 Body mass index [BMI] 39.0-39.9, adult; Z79.4 Long term (current) use of insulin; Z20.822 Contact with and (suspected) exposure to COVID-19
CPT/HCPCS: J1650; J3370; J3475; Q3014

== ENCOUNTER 2024-01-17 03:06 | Emergency (ER) | payer MEDICARE, MEDICAID ==
[2024-01-17] VITALS (21 sets, daily range): BP systolic 68–165; BP diastolic 32–73
[~2024-01-17] VITALS: Ht 162.6 cm; Wt 84.0 kg
[~2024-01-17 03:06] MED LIST changes: +ACETAMINOPHEN325 MG PO; +ADULT ASPIRIN R81 MG PO; +ASPIRIN81 MG PO; +CIPROFLOXACN750 MG PO; +CLOPIDOGREL75 MG PO; +DEPAKOTE125 MG PO; +ISORDIL10 MG PO; +ISOSORB MONO30 MG PO; +KEFLEX500 MG PO; +KURIC2 % TOP; +METOPROL TAR25 MG PO; +MIRTAZAPINE15 MG PO; +NYAMYC100000 UNI TOP; +PROTONIX40 M2 PO; +[UNRECOGNIZED DRUG - CODE]
[2024-01-17] MEDS ORDERED: SODIUM CHLORIDE 0.9% 1,000 ML IV ONE (03:20)
[2024-01-17] MEDS ORDERED: SODIUM CHLORIDE 0.9% 1,000 ML BAG IV ONE (03:20)
[2024-01-17] MEDS ORDERED: cefTRIAXone SODIUM 2 GM in SODIUM CHLORIDE 0.9% 100 ML IV ONE (03:20)
[2024-01-17 04:09] LABS: URINE BILIRUBIN - DIPSTICK Negative (NEGATIVE); URINE BLOOD DIPSTICK Moderate (NEGATIVE); URINE GLUCOSE - DIPSTICK 100 mg/dL (NEGATIVE); URINE KETONE Negative (NEGATIVE); URINE PH 5.5 (4.5-8.0); URINE PROTEIN - DIPSTICK 100 mg/dL (NEG-TRACE); URINE SPECIFIC GRAVITY 1.015; URINE UROBILINOGEN - DIPSTICK 0.2 E.U./dL (0.2)
[2024-01-17 04:14] LABS: URINE COLOR Yellow; URINE LEUK ESTERASE Small (NEGATIVE); URINE NITRITE - DIPSTICK Negative (Negative)
[2024-01-17 04:17] LABS: URINE WBC 20-50 WBC/hpf (0-5)
[2024-01-17 04:18] LABS: URINE BACTERIA MANY hpf; URINE EPITHELIAL CELLS MODERATE EPI/hpf (0-FEW)
[2024-01-17] MEDS ORDERED: KEFLEX500 MG PO (05:09)
[2024-01-17] MEDS ORDERED: ASPIRINCHW 81MG PO (05:19)
[2024-01-17] MEDS ORDERED: CEPHALEXIN500 MG PO (05:23)
[2024-01-17] MEDS ORDERED: GLUCAGON1 M1 IM (05:25)
[2024-01-17] MEDS ORDERED: HUMALOG100 UNIT/M SC (05:26)
[2024-01-17 05:34] LABS: BASO% 0.6 % (0-3); EOS% 0.2 % (0-8); LYMPH% 20.2 % (15-41); MEAN CORPUSCULAR HGB 28.9 pG CALC (26.0-32.0); MEAN CORPUSCULAR HGB CONC 30.1 g/dL CAL (32.0-36.0); MONO% 11.7 % (2-13); NEUT# 6.03 thou/uL (2.00-7.15); NEUT% 60.5 % (42-76); RED BLOOD COUNT 2.98 mill/uL (4.20-5.60); RED CELL DISTRI WIDTH 15.8 % (11.5-15.5)
[2024-01-17 05:37] LABS: HEMATOCRIT 28.6 % (37.0-47.0); HEMOGLOBIN 8.6 g/dl (12.0-16.0); IMMATURE GRANULOCYTES 6.8 % (0.0-5.0)
[2024-01-17 05:47] LABS: ALBUMIN 2.7 g/dL (3.2-5.0); CREATININE 1.4 mg/dL (0.5-1.0); POTASSIUM 3.4 mmol/l (3.5-5.1); TOTAL PROTEIN 5.7 g/dL (6.3-8.2)
[2024-01-17] MEDS ORDERED: LANTUS100 UNIT SC (05:47)
[2024-01-17] MEDS ORDERED: COZAAR25 MG PO (05:47)
[2024-01-17] MEDS ORDERED: METFORMIN500 M2 PO (05:49)
[2024-01-17 05:54] LABS: BILIRUBIN, TOTAL 0.3 mg/dL (0.02-1.3)
[2024-01-17] MEDS ORDERED: ZOLOFT25 MG PO (05:57)
[2024-01-17] MEDS ORDERED: PROBIOTI2 PO (05:57)
== END 2024-01-17 12:33 ==
LOC: ED 03:06
PROVIDERS: Family Medicine
DX: N39.0 Urinary tract infection, site not specified (principal); B96.89 Other specified bacterial agents as the cause of diseases classified elsewhere; E11.22 Type 2 diabetes mellitus with diabetic chronic kidney disease; I12.9 Hypertensive chronic kidney disease with stage 1 through stage 4 chronic kidney disease, or unspecified chronic kidney disease; N18.9 Chronic kidney disease, unspecified; F03.90 Unspecified dementia, unspecified severity, without behavioral disturbance, psychotic disturbance, mood disturbance, and anxiety; E78.5 Hyperlipidemia, unspecified; Z79.84 Long term (current) use of oral hypoglycemic drugs; Z79.4 Long term (current) use of insulin; Z20.822 Contact with and (suspected) exposure to COVID-19

== ENCOUNTER 2024-07-20 19:19 | Inpatient (IN) | payer MEDICARE, OTHER ==
[~2024-07-20] VITALS: Ht 162.6 cm; Wt 82.1 kg
[2024-07-20] VITALS (13 sets, daily range): BP systolic 142–189; BP diastolic 57–78
[~2024-07-20 19:19] MED LIST changes: +ASPIRINCHW 81MG PO; +CEPHALEXIN500 MG PO; +COZAAR25 MG PO; +GLUCAGON1 M1 IM; +HUMALOG100 UNIT/M SC; +LANTUS100 UNIT SC; +METFORMIN500 M2 PO; +PROBIOTI2 PO; +ZOLOFT25 MG PO
[2024-07-20 19:46] LABS: HEMATOCRIT 34.2 % (37.0-47.0); HEMOGLOBIN 10.5 g/dl (12.0-16.0); MEAN CORPUSCULAR HGB 28.8 pG CALC (26.0-32.0); MEAN CORPUSCULAR HGB CONC 30.7 g/dL CAL (32.0-36.0); PLATELET COUNT 264 thou/uL (130-400); RED BLOOD COUNT 3.64 mill/uL (4.20-5.60); RED CELL DISTRI WIDTH 17.6 % (11.5-15.5)
[2024-07-20 19:47] LABS: IMMATURE GRANULOCYTES 6.6 % (0.0-5.0)
[2024-07-20 19:48] LABS: MANUAL DIFFERENTIAL YES
[2024-07-20] MEDS ORDERED: OZEMPIC2 MG SC (19:53)
[2024-07-20] MEDS ORDERED: TRESIBA100 UNIT/M SC (19:55)
[2024-07-20] MEDS ORDERED: ZOFRAN4 MG/TAB PO (19:56)
[2024-07-20 20:02] LABS: INTERNATIONAL NORMALIZED RATIO 1.1 RATIO (0.7-1.3)
[2024-07-20 20:04] LABS: PROTHROMBIN TIME 11.9 SECONDS (9.0-12.5)
[2024-07-20 20:07] LABS: ALBUMIN 3.2 g/dL (3.2-5.0); CHOLESTEROL HDL RATIO 3.1 (<4.4 (CALC)); POTASSIUM 2.8 mmol/l (3.5-5.1); TOTAL PROTEIN 6.8 g/dL (6.3-8.2)
[2024-07-20 20:08] LABS: ANISOCYTOSIS FEW; BAND 5 % (0-8); BILIRUBIN, TOTAL 0.8 mg/dL (0.02-1.3); CREATININE 2.2 mg/dL (0.5-1.0); POIKILOCYTOSIS FEW; SPHEROCYTE FEW
[2024-07-20 20:09] LABS: HELMET CELLS FEW; PLATELET ESTIMATE NORMAL; SCHISTOCYTES FEW; TEAR DROP CELLS FEW
[2024-07-20] MEDS ORDERED: POTASSIUM CHLORIDE 40 MEQ in SODIUM CHLORIDE 0.45% 1,000 ML IV ONE (20:15)
[2024-07-20] MEDS ORDERED: SODIUM CHLORIDE 0.9% 1,000 ML IV ONE (20:15)
[2024-07-20] MEDS ORDERED: ACETAMINOPHEN 325 MG/TAB PO PRN (20:40)
[2024-07-20] MEDS ORDERED: SODIUM CHLORIDE 0.45% 1,000 ML IV PRN (20:40)
[2024-07-20] MEDS ORDERED: MAGNESIUM HYDROXIDE 30 ML UDC PO PRN (20:40)
[2024-07-20] MEDS ORDERED: hydrALAZINE HCL 20 MG/ML VIAL(1 ML) IV PRN (20:50)
[2024-07-20] MEDS ORDERED: INSULIN LISPRO 100 UNITS/ML ML SC SCH (21:00)
[2024-07-20] MEDS ORDERED: POTASSIUM CHLORIDE IN NACL 1,000 ML IV ONE (21:55)
[2024-07-20] MEDS ORDERED: DEXTROSE 250 ML IV ONE (23:58)
[2024-07-21] VITALS (8 sets, daily range): BP systolic 88–172; BP diastolic 44–151
[2024-07-21] MEDS ORDERED: D5 1/2 NaCL W/KCL 20MEQ 1,000 ML IV PRN (00:55)
[2024-07-21] MEDS ORDERED: DEXTROSE 250 ML IV ONE (01:50)
[2024-07-21 05:48] LABS: URINE BILIRUBIN - DIPSTICK Negative (NEGATIVE); URINE BLOOD DIPSTICK Moderate (NEGATIVE); URINE GLUCOSE - DIPSTICK Negative (NEGATIVE); URINE KETONE Negative (NEGATIVE); URINE PROTEIN - DIPSTICK 100 mg/dL (NEG-TRACE); URINE UROBILINOGEN - DIPSTICK 0.2 E.U./dL (0.2)
[2024-07-21 05:49] LABS: URINE COLOR Yellow; URINE LEUK ESTERASE Large (NEGATIVE); URINE NITRITE - DIPSTICK Positive (Negative)
[2024-07-21 05:51] LABS: URINE SQUAMOUS EPITHELIAL CELL FEW EPI/hpf (0-FEW); URINE WBC >100 WBC/hpf (0-5)
[2024-07-21 05:52] LABS: URINE BACTERIA MODERATE hpf
[2024-07-21 05:59] LABS: HEMATOCRIT 37.1 % (37.0-47.0); HEMOGLOBIN 11.3 g/dl (12.0-16.0); MEAN CORPUSCULAR HGB 30.5 pG CALC (26.0-32.0); MEAN CORPUSCULAR HGB CONC 30.5 g/dL CAL (32.0-36.0); PLATELET COUNT 254 thou/uL (130-400); RED BLOOD COUNT 3.71 mill/uL (4.20-5.60); RED CELL DISTRI WIDTH 17.7 % (11.5-15.5)
[2024-07-21 06:13] LABS: ALBUMIN 2.9 g/dL (3.2-5.0); CREATININE 2.2 mg/dL (0.5-1.0); POTASSIUM 2.8 mmol/l (3.5-5.1); TOTAL PROTEIN 6.3 g/dL (6.3-8.2)
[2024-07-21 06:29] LABS: IMMATURE GRANULOCYTES 6.3 % (0.0-5.0)
[2024-07-21 06:30] LABS: MANUAL DIFFERENTIAL YES
[2024-07-21 06:33] LABS: BAND 7 % (0-8)
[2024-07-21 06:34] LABS: POIKILOCYTOSIS FEW
[2024-07-21 06:35] LABS: PLATELET ESTIMATE NORMAL; TEAR DROP CELLS RARE
[2024-07-21] MEDS ORDERED: POTASSIUM CHLORIDE 20MEQ 100 ML IV SCH ×2 (07:00→18:00)
[2024-07-21] MEDS ORDERED: MIRALAX17 GM PO (09:46)
[2024-07-21] MEDS ORDERED: MILK OF MAGNES7.75 % PO (09:50)
[2024-07-21] MEDS ORDERED: MULTI VIT PO (09:54)
[2024-07-21] MEDS ORDERED: ABILIFY10 MG PO (10:08)
[2024-07-21] MEDS ORDERED: LACTATED RINGER'S 1,000 ML IV PRN ×2 (11:45→20:20)
[2024-07-21 12:34] LABS: ALBUMIN 2.6 g/dL (3.2-5.0); BILIRUBIN, TOTAL 0.8 mg/dL (0.02-1.3); CREATININE 2.3 mg/dL (0.5-1.0); POTASSIUM 2.9 mmol/l (3.5-5.1); TOTAL PROTEIN 5.8 g/dL (6.3-8.2)
[2024-07-21 12:41] LABS: HEMOGLOBIN 10.2 g/dl (12.0-16.0); IMMATURE GRANULOCYTES 7.5 % (0.0-5.0); MEAN CELL VOLUME 92.5 fL CALC (80.0-100.0); MEAN CORPUSCULAR HGB 29.5 pG CALC (26.0-32.0); MEAN CORPUSCULAR HGB CONC 31.9 g/dL CAL (32.0-36.0); PLATELET COUNT 252 thou/uL (130-400); RED BLOOD COUNT 3.46 mill/uL (4.20-5.60); RED CELL DISTRI WIDTH 17.2 % (11.5-15.5)
[2024-07-21 12:42] LABS: MANUAL DIFFERENTIAL YES
[2024-07-21 12:46] LABS: BAND 7 % (0-8)
[2024-07-21] MEDS ORDERED: MAGNESIUM SULFATE HEPTAHYDRATE 100 ML IV SCH (13:00)
[2024-07-21] MEDS ORDERED: VANCOMYCIN HCL IV SCH (15:00)
[2024-07-21] MEDS ORDERED: SODIUM CHLORIDE 0.9% IV SCH (15:00)
[2024-07-21 18:37] LABS: ALBUMIN 2.5 g/dL (3.2-5.0); BILIRUBIN, TOTAL 0.8 mg/dL (0.02-1.3); CREATININE 2.5 mg/dL (0.5-1.0); TOTAL PROTEIN 5.7 g/dL (6.3-8.2)
[2024-07-21] MEDS ORDERED: SODIUM BICARBONATE IV PRN (20:20)
[2024-07-21] MEDS ORDERED: SODIUM CHLORIDE IV PRN (20:20)
[2024-07-21] MEDS ORDERED: PIPERACILLIN Sodium-Tazobactam 3.375 GM in SODIUM CHLORIDE 0.9% 100 ML IV SCH (21:00)
[2024-07-22] VITALS (45 sets, daily range): BP systolic 52–145; BP diastolic 21–79
[2024-07-22 00:38] LABS: ALBUMIN 2.2 g/dL (3.2-5.0); BILIRUBIN, TOTAL 0.7 mg/dL (0.02-1.3); CREATININE 2.6 mg/dL (0.5-1.0); POTASSIUM 2.7 mmol/l (3.5-5.1); TOTAL PROTEIN 5.1 g/dL (6.3-8.2)
[2024-07-22 05:23] LABS: HEMATOCRIT 29.3 % (37.0-47.0); HEMOGLOBIN 8.8 g/dl (12.0-16.0); MEAN CORPUSCULAR HGB 29.6 pG CALC (26.0-32.0); PLATELET COUNT 237 thou/uL (130-400); RED BLOOD COUNT 2.97 mill/uL (4.20-5.60); RED CELL DISTRI WIDTH 18.1 % (11.5-15.5)
[2024-07-22 05:35] LABS: ALBUMIN 2.2 g/dL (3.2-5.0); BILIRUBIN, TOTAL 0.6 mg/dL (0.02-1.3); CREATININE 2.7 mg/dL (0.5-1.0); TOTAL PROTEIN 5.1 g/dL (6.3-8.2)
[2024-07-22 05:58] LABS: MAGNESIUM 1.8 mg/dL (1.6-2.3); MEAN CELL VOLUME 98.7 fL CALC (80.0-100.0); POTASSIUM 2.4 mmol/l (3.5-5.1)
[2024-07-22 06:05] LABS: IMMATURE GRANULOCYTES 11.5 % (0.0-5.0); MANUAL DIFFERENTIAL YES
[2024-07-22 06:08] LABS: BAND 7 % (0-8); PLATELET ESTIMATE NORMAL
[2024-07-22] MEDS ORDERED: POTASSIUM CHLORIDE 20MEQ 100 ML IV SCH ×2 (06:30→12:30)
[2024-07-22] MEDS ORDERED: SODIUM CHLORIDE IV PRN (07:35)
[2024-07-22] MEDS ORDERED: SODIUM BICARBONATE IV PRN (07:35)
[2024-07-22] MEDS ORDERED: Barium Sulfate (Readi-Cat 2 Banana) 450 ML/BTL PO ONE (09:20)
[2024-07-22] MEDS ORDERED: CALCIUM GLUCONATE 2 GM in SODIUM CHLORIDE 0.9% 100 ML IV SCH (11:00)
[2024-07-22] MEDS ORDERED: PIPERACILLIN Sodium-Tazobactam 2.25 GM in SODIUM CHLORIDE 0.9% 50 ML IV SCH (12:00)
[2024-07-22 12:17] LABS: ALBUMIN 2.6 g/dL (3.2-5.0); BILIRUBIN, TOTAL 0.6 mg/dL (0.02-1.3); CREATININE 2.7 mg/dL (0.5-1.0); POTASSIUM 2.8 mmol/l (3.5-5.1); TOTAL PROTEIN 5.7 g/dL (6.3-8.2)
[2024-07-23] VITALS (25 sets, daily range): BP systolic 119–152; BP diastolic 43–63
[2024-07-23 05:35] LABS: BASO% 0.4 % (0-3); EOS% 0.6 % (0-8); HEMATOCRIT 25.1 % (37.0-47.0); HEMOGLOBIN 7.7 g/dl (12.0-16.0); LYMPH% 10.1 % (15-41); MEAN CELL VOLUME 95.1 fL CALC (80.0-100.0); MEAN CORPUSCULAR HGB 29.2 pG CALC (26.0-32.0); MEAN CORPUSCULAR HGB CONC 30.7 g/dL CAL (32.0-36.0); MONO% 4.3 % (2-13); NEUT# 18.74 thou/uL (2.00-7.15); NEUT% 76.7 % (42-76); RED BLOOD COUNT 2.64 mill/uL (4.20-5.60); RED CELL DISTRI WIDTH 17.9 % (11.5-15.5)
[2024-07-23 05:48] LABS: IMMATURE GRANULOCYTES 7.9 % (0.0-5.0)
[2024-07-23 06:06] LABS: ALBUMIN 2.2 g/dL (3.2-5.0); BILIRUBIN, TOTAL 0.6 mg/dL (0.02-1.3); CREATININE 2.4 mg/dL (0.5-1.0); MAGNESIUM 1.7 mg/dL (1.6-2.3); POTASSIUM 2.5 mmol/l (3.5-5.1)
[2024-07-23] MEDS ORDERED: DEXTROSE 5% 1,000 ML IV PRN (08:45)
[2024-07-23] MEDS ORDERED: MAGNESIUM SULFATE 50% 1 GM/2 ML IV ONE (08:50)
[2024-07-23] MEDS ORDERED: Meropenem 1 GM in SODIUM CHLORIDE 0.9% 100 ML IV SCH (09:00)
[2024-07-23] MEDS ORDERED: POTASSIUM CHLORIDE 20MEQ 100 ML IV SCH ×3 (09:30→21:30)
[2024-07-23] MEDS ORDERED: MAGNESIUM SULFATE HEPTAHYDRATE 50 ML IV SCH (10:00)
[2024-07-23] MEDS ORDERED: CALCIUM GLUCONATE 2 GM in SODIUM CHLORIDE 0.9% 100 ML IV SCH (12:00)
[2024-07-24] VITALS (9 sets, daily range): BP systolic 118–179; BP diastolic 46–71
[2024-07-24 05:38] LABS: BILIRUBIN, TOTAL 0.7 mg/dL (0.02-1.3); CREATININE 2.1 mg/dL (0.5-1.0); MAGNESIUM 1.8 mg/dL (1.6-2.3); TOTAL PROTEIN 4.7 g/dL (6.3-8.2)
[2024-07-24 05:46] LABS: BASO% 0.7 % (0-3); EOS% 0.8 % (0-8); HEMATOCRIT 27.5 % (37.0-47.0); HEMOGLOBIN 8.2 g/dl (12.0-16.0); IMMATURE GRANULOCYTES 6.9 % (0.0-5.0); LYMPH% 15.3 % (15-41); MEAN CORPUSCULAR HGB 29.8 pG CALC (26.0-32.0); MEAN CORPUSCULAR HGB CONC 29.8 g/dL CAL (32.0-36.0); MONO% 4.8 % (2-13); NEUT# 12.59 thou/uL (2.00-7.15); NEUT% 71.5 % (42-76); RED BLOOD COUNT 2.75 mill/uL (4.20-5.60); RED CELL DISTRI WIDTH 18.3 % (11.5-15.5)
[2024-07-24 05:48] LABS: POTASSIUM 3.4 mmol/l (3.5-5.1)
[2024-07-24] MEDS ORDERED: CALCIUM CARBONATE 750 MG/TAB PO SCH (21:45)
[2024-07-25] VITALS (16 sets, daily range): BP systolic 96–168; BP diastolic 37–67
[2024-07-25 05:22] LABS: HEMATOCRIT 25.9 % (37.0-47.0); HEMOGLOBIN 8.2 g/dl (12.0-16.0); MEAN CELL VOLUME 95.2 fL CALC (80.0-100.0); MEAN CORPUSCULAR HGB 30.1 pG CALC (26.0-32.0); MEAN CORPUSCULAR HGB CONC 31.7 g/dL CAL (32.0-36.0); RED BLOOD COUNT 2.72 mill/uL (4.20-5.60); RED CELL DISTRI WIDTH 17.5 % (11.5-15.5)
[2024-07-25 05:46] LABS: BILIRUBIN, TOTAL 0.6 mg/dL (0.02-1.3); CREATININE 1.9 mg/dL (0.5-1.0); MAGNESIUM 1.5 mg/dL (1.6-2.3); POTASSIUM 2.9 mmol/l (3.5-5.1); TOTAL PROTEIN 4.7 g/dL (6.3-8.2)
[2024-07-25] MEDS ORDERED: POTASSIUM CHLORIDE 20MEQ 100 ML IV SCH (08:00)
[2024-07-25] MEDS ORDERED: MAGNESIUM SULFATE HEPTAHYDRATE 50 ML IV SCH (08:00)
[2024-07-25] MEDS ORDERED: Heparin SODIUM (Porcine) 5,000 UNITS/ML SDV SC SCH (08:00)
[2024-07-25] MEDS ORDERED: POTASSIUM CHLORIDE 20 MEQ/TAB PO SCH (09:00)
[2024-07-25] MEDS ORDERED: PANTOPRAZOLE SODIUM Sesquihydr 40 MG/TAB PO SCH (10:30)
[2024-07-25] MEDS ORDERED: ASPIRIN 81 MG/TAB PO SCH (10:30)
[2024-07-25] MEDS ORDERED: METOPROLOL TARTRATE 25 MG/TAB PO SCH (10:30)
[2024-07-25] MEDS ORDERED: ISOSORBIDE DINITRATE 10 MG TAB PO SCH (10:30)
[2024-07-26 05:50] LABS: HEMATOCRIT 26.1 % (37.0-47.0); HEMOGLOBIN 8.1 g/dl (12.0-16.0); MEAN CORPUSCULAR HGB 29.8 pG CALC (26.0-32.0); RED BLOOD COUNT 2.72 mill/uL (4.20-5.60); RED CELL DISTRI WIDTH 17.2 % (11.5-15.5)
[2024-07-26 06:11] LABS: BILIRUBIN, TOTAL 0.5 mg/dL (0.02-1.3); CREATININE 1.9 mg/dL (0.5-1.0); MAGNESIUM 1.8 mg/dL (1.6-2.3); POTASSIUM 3.1 mmol/l (3.5-5.1); TOTAL PROTEIN 4.8 g/dL (6.3-8.2)
[2024-07-26] MEDS ORDERED: POTASSIUM CHLORIDE 20 MEQ/TAB PO SCH (07:30)
[2024-07-26 10:23] VITALS: BP 158/66
[2024-07-26 11:00] VITALS: BP 135/56
[2024-07-26 12:00] VITALS: BP 155/66
[2024-07-26] MEDS ORDERED: MEROPENEM1 GM IV (12:37)
[2024-07-26 13:00] VITALS: BP 150/64
[2024-07-26 14:02] VITALS: BP 123/54
== END 2024-07-26 14:25 | DRG 871 ==
LOC: ED 19:19 → ED-I 20:26 → ED 20:26 → MS2 21:43 → ICU 07-21 12:21
PROVIDERS: Family Medicine; Internal Medicine; Nurse Practitioner Family; ADMIT Internal Medicine; ATTEND Internal Medicine
PROC: 0T9B70Z Drainage of Bladder with Drainage Device, Via Natural or Artificial Opening (ICD-10-PCS; principal; 2024-07-21)
DX: A41.9 Sepsis, unspecified organism (principal); G93.41 Metabolic encephalopathy; J18.9 Pneumonia, unspecified organism; N13.6 Pyonephrosis; F03.918 Unspecified dementia, unspecified severity, with other behavioral disturbance; N17.9 Acute kidney failure, unspecified; E87.20 Acidosis, unspecified; Z16.12 Extended spectrum beta lactamase (ESBL) resistance; E87.0 Hyperosmolality and hypernatremia; R65.20 Severe sepsis without septic shock; E11.649 Type 2 diabetes mellitus with hypoglycemia without coma; E87.6 Hypokalemia; I12.9 Hypertensive chronic kidney disease with stage 1 through stage 4 chronic kidney disease, or unspecified chronic kidney disease; E11.22 Type 2 diabetes mellitus with diabetic chronic kidney disease; N18.9 Chronic kidney disease, unspecified; I25.10 Atherosclerotic heart disease of native coronary artery without angina pectoris; I95.9 Hypotension, unspecified; E78.5 Hyperlipidemia, unspecified; E83.42 Hypomagnesemia; D32.0 Benign neoplasm of cerebral meninges; E83.51 Hypocalcemia; B96.1 Klebsiella pneumoniae [K. pneumoniae] as the cause of diseases classified elsewhere; B96.5 Pseudomonas (aeruginosa) (mallei) (pseudomallei) as the cause of diseases classified elsewhere; Z86.718 Personal history of other venous thrombosis and embolism; Z66 Do not resuscitate; Z79.4 Long term (current) use of insulin; Z79.84 Long term (current) use of oral hypoglycemic drugs; Z79.85 Long-term (current) use of injectable non-insulin antidiabetic drugs; Z86.711 Personal history of pulmonary embolism; Z87.440 Personal history of urinary (tract) infections; Z74.01 Bed confinement status; Z22.358 Carrier of other Enterobacterales
CPT/HCPCS: J0612; J0696; J1644; J1815; J2020; J2543; J3370; J3475; J3480